=== PATIENT | female | born 1950 | race Caucasian/White ===

== ENCOUNTER 2017-07-23 20:39 | Observation (INO) ==
--- NOTE | 2017-07-23 20:44 | Emergency Department Note ---
Disposition Clinical Impression: Hypotension Qualifiers: Hypotension type: unspecified hypotension type Qualified Code(s): I95.9 - Hypotension, unspecified Hypothyroidism Qualifiers: Hypothyroidism type: unspecified Qualified Code(s): E03.9 - Hypothyroidism, unspecified Disposition: Admitted As Inpatient Condition: Good General Adult HPI - General Stated complaint: hypotention Time Seen by Provider: 07/23/17 20:43 Source: patient Mode of arrival: ambulatory Limitations: no limitations Nursing Notes Reviewed: Yes Vital Signs Reviewed: Yes - History of Present Illness HPI Narrative: 66-year-old female presents emergency Department with concerns of hypotension. Patient states she initially thought her blood pressure was elevated and she took it at home however on repeat examination the blood pressure was at 70 systolic. EMS was contacted and they also obtained a blood pressure in the systolic 70s. Patient states she felt lightheaded and "dizzy". She denied room spinning however she felt nauseated. She denies any focal neurologic deficits. No other fevers or chills or chest pain or shortness of breath or palpitations. Denies taking extra of any of her other medications. Denies suicidal ideation or homicidal ideation. Denies visual or auditory hallucinations. Patient has not syncopized and denies recent trauma. - Related Data Home Medications Medication Instructions Recorded Confirmed Montelukast [Singulair] 10 mg PO HS 03/16/15 07/24/17 Roflumilast [Daliresp] 500 mcg PO QAM 03/16/15 07/24/17 Escitalopram [Lexapro] 20 mg PO DAILY 11/21/16 07/24/17 Mirtazapine [Remeron] 45 mg PO HS 11/21/16 07/24/17 ARIPiprazole [Abilify] 15 mg PO DAILY 07/24/17 07/24/17 Albuterol Sulfate [Proair Hfa] 2 puff IH Q4H PRN 07/24/17 07/24/17 DULoxetine [Cymbalta] 20 mg PO BID 07/24/17 07/24/17 Divalproex (12 HR) [Depakote (12 500 mg PO BID 07/24/17 07/24/17 HR)] Fluticasone/Vilanterol [Breo 1 puff IH BID 07/24/17 07/24/17 Ellipta 100-25 Mcg INH] Pantoprazole Sodium 40 mg PO DAILY 07/24/17 07/24/17 SUMAtriptan Succinate [Imitrex] 100 mg PO DAILY PRN 07/24/17 07/24/17 Tiotropium [place] [Spiriva 1 spray NS DAILY 07/24/17 07/24/17 Respimat] amLODIPine [Norvasc] 2.5 mg PO DAILY 07/24/17 07/24/17 hydrOXYzine pamoate [HydrOXYzine 25 mg PO TID 07/24/17 07/24/17 Pamoate] Previous Rx's Medication Instructions Recorded Levothyroxine [Synthroid] 150 mcg PO DAILY #30 tablet 07/25/17 Nicotine Patch [Nicoderm] 21 mg TD DAILY #30 patch.td24 07/25/17 amLODIPine [Norvasc] 10 mg PO DAILY #30 tablet 07/25/17 Allergies Allergy/AdvReac Type Severity Reaction Status Date / Time Penicillins Allergy Hives Verified 07/24/17 09:00 Review of Systems: As reviewed in the HPI. All other systems reviewed are negative or normal. Past Medical History - Past Medical History Attestation: Yes The following information was validated with the patient. Source: patient Medical history: Reports: asthma, CHF, COPD, CVA, fibromyalgia, GERD, hepatitis , hyperlipidemia, hypertension, osteoporosis, RA, other Surgical history: Reports: pacemaker/AICD, thyroidectomy, other Psychiatric history: Reports: anxiety, depression ASSET SPECIALIST history: Reports: no ASSET SPECIALIST history - Social History Smoking Status: Current every day smoker Smokeless Tobacco Status: No Alcohol use: Reports: none Drug use: Reports: marijuana Physical Exam - General Limitations: no limitations General appearance: alert, in no apparent distress - Head Head exam: atraumatic, normocephalic, normal inspection - Eye Eye exam: Present: normal appearance, PERRL, EOMI - ENT ENT exam: normal exam, normal oropharynx, mucous membranes moist - Neck Neck exam: Present: normal inspection, full ROM, trachea midline - Chest Chest inspection: Present: normal inspection, symmetric chest wall rise - Respiratory Respiratory exam: Present: normal lung sounds bilaterally - Cardiovascular Cardiovascular exam: Present: regular rate, normal rhythm, normal heart sounds - Abdominal Exam Abdominal exam: Present: soft, Non-Tender. Absent: tenderness, distention, guarding, rebound, rigidity - Extremities Exam Extremities exam: Present: normal inspection, full ROM. Absent: tenderness, pedal edema Course Course Narrative: Patient presenting with and infiltrated, and hypotension. Looks well. We will screen for sepsis. We will also add on a TSH. patient to be signed out to be finished by attending due to have to leave for didactics. Vital Signs Temperature 97.9 F 07/23/17 20:46 Pulse Rate 60 07/23/17 20:46 Respiratory Rate 16 07/23/17 20:46 Blood Pressure 84/48 07/23/17 20:46 O2 Sat by Pulse Oximetry 94 07/23/17 20:46 Temperature 99.1 F 07/25/17 11:15 Pulse Rate 70 07/25/17 11:15 Respiratory Rate 16 07/25/17 11:15 Blood Pressure 152/82 07/25/17 16:01 O2 Sat by Pulse Oximetry 91 07/25/17 11:15 Oxygen Delivery Oxygen Delivery Room Air Medical Decision Making - Lab Data Result diagrams: 07/25/17 05:43 07/25/17 05:43 Lab Results 07/23/17 07/23/17 07/23/17 Range/Units 21:17 21:17 21:17 WBC 8.7 (4.3-11.1) K/mcL RBC 4.55 (3.82-4.97) M/mcL Hgb 12.7 (11.5-15.4) g/dL Hct 38.5 (35.3-44.9) % MCV 84.6 (83.0-100.0) fL MCH 27.9 L (28.0-33.3) pg MCHC 33.0 (31.6-35.5) g/dL RDW 13.8 (11.5-14.5) % Plt Count 208 (140-400) K/mcL MPV 10.0 (9.4-12.4) fL Immature Gran % 0.2 (0-4) % Seg Neutrophils % 53.6 % Lymphocytes % 37.4 % Monocytes % 7.1 % Eosinophils % 1.4 % Basophils % 0.3 % Neutrophils # 4.7 (1.6-8.9) K/mcL Lymphocytes # 3.3 (0.6-4.6) K/mcL Monocytes # 0.6 (0.0-1.3) K/mcL Eosinophils # 0.1 (0.0-0.6) K/mcL Basophils # 0.0 (0.0-0.2) K/mcL Sodium 135 L (136-145) mEq/L Potassium 3.6 (3.5-5.1) mEq/L Chloride 102 (98-107) mEq/L Carbon Dioxide 28 (23-29) mEq/L BUN 13 (8-23) mg/dL Creatinine 1.08 (0.60-1.20) mg/dL Est GFR ( Amer) > 60 (> 60) Est GFR (Non-Af Amer) 51 L (> 60) BUN/Creatinine Ratio 12 (6-26) Glucose 125 H (70-105) mg/dL Calculated Osmolality 282 (280-300) Lactic Acid 1.6 (0.5-2.2) mmol/L Calcium 9.1 (8.6-10.3) mg/dL Phosphorus 3.5 (2.7-4.5) mg/dL Magnesium 2.1 (1.6-2.6) mg/dL Total Bilirubin 0.3 (0.3-1.0) mg/dL Direct Bilirubin 0.1 (0.0-0.2) mg/dL Indirect Bilirubin 0.2 (0.0-1.2) mg/dL AST 20 (13-39) Units/L ALT 13 (7-52) Units/L Alkaline Phosphatase 46 (34-104) Units/L Troponin I < 0.03 (< 0.04) ng/mL B-Natriuretic Peptide (Less than 100) pg/mL Serum Total Protein 6.0 L (6.4-8.9) g/dL Albumin 3.8 (3.5-5.7) g/dL Globulin 2.2 L (2.4-3.5) g/dL Albumin/Globulin Ratio 1.7 (1.1-2.2) TSH 26.198 H (0.340-5.600) mcIU/mL Ur Specimen Adequacy Urine Color (Yellow) Urine Clarity (Clear) Urine pH (5.0-8.0) pH Units Ur Specific [place] (1.010-1.025) Urine Protein (Neg-Trace) mg/dL Urine Glucose (UA) (Normal) mg/dL Urine Ketones (Negative) mg/dL Urine Blood (Negative) Urine Nitrite (Negative) Urine Bilirubin (Negative) Urine Urobilinogen (Normal) mg/dL Ur Leukocyte Esterase (Negative) Urine Microscopic RBC (0-3) per hpf Urine Microscopic WBC (0-3) per hpf Ur Squamous Epith Cells (None-Few) per lpf Urine Bacteria (None-Few) per hpf Hyaline Casts (None-Few) per lpf Ur Culture Indicated? (NO) 07/23/17 07/23/17 Range/Units 21:17 21:27 WBC (4.3-11.1) K/mcL RBC (3.82-4.97) M/mcL Hgb (11.5-15.4) g/dL Hct (35.3-44.9) % MCV (83.0-100.0) fL MCH (28.0-33.3) pg MCHC (31.6-35.5) g/dL RDW (11.5-14.5) % Plt Count (140-400) K/mcL MPV (9.4-12.4) fL Immature Gran % (0-4) % Seg Neutrophils % % Lymphocytes % % Monocytes % % Eosinophils % % Basophils % % Neutrophils # (1.6-8.9) K/mcL Lymphocytes # (0.6-4.6) K/mcL Monocytes # (0.0-1.3) K/mcL Eosinophils # (0.0-0.6) K/mcL Basophils # (0.0-0.2) K/mcL Sodium (136-145) mEq/L Potassium (3.5-5.1) mEq/L Chloride (98-107) mEq/L Carbon Dioxide (23-29) mEq/L BUN (8-23) mg/dL Creatinine (0.60-1.20) mg/dL Est GFR ( Amer) (> 60) Est GFR (Non-Af Amer) (> 60) BUN/Creatinine Ratio (6-26) Glucose (70-105) mg/dL Calculated Osmolality (280-300) Lactic Acid (0.5-2.2) mmol/L Calcium (8.6-10.3) mg/dL Phosphorus (2.7-4.5) mg/dL Magnesium (1.6-2.6) mg/dL Total Bilirubin (0.3-1.0) mg/dL Direct Bilirubin (0.0-0.2) mg/dL Indirect Bilirubin (0.0-1.2) mg/dL AST (13-39) Units/L ALT (7-52) Units/L Alkaline Phosphatase (34-104) Units/L Troponin I (< 0.04) ng/mL B-Natriuretic Peptide 23 (Less than 100) pg/mL Serum Total Protein (6.4-8.9) g/dL Albumin (3.5-5.7) g/dL Globulin (2.4-3.5) g/dL Albumin/Globulin Ratio (1.1-2.2) TSH (0.340-5.600) mcIU/mL Ur Specimen Adequacy Urine Color Yellow (Yellow) Urine Clarity Clear (Clear) Urine pH 6.0 (5.0-8.0) pH Units Ur Specific [place] >= 1.030 H (1.010-1.025) Urine Protein 100 H (Neg-Trace) mg/dL Urine Glucose (UA) 100 H (Normal) mg/dL Urine Ketones 15 H (Negative) mg/dL Urine Blood Negative (Negative) Urine Nitrite Negative (Negative) Urine Bilirubin Moderate H (Negative) Urine Urobilinogen Normal (Normal) mg/dL Ur Leukocyte Esterase Negative (Negative) Urine Microscopic RBC 0-3 (0-3) per hpf Urine Microscopic WBC 0-3 (0-3) per hpf Ur Squamous Epith Cells Moderate H (None-Few) per lpf Urine Bacteria Few (None-Few) per hpf Hyaline Casts Many H (None-Few) per lpf Ur Culture Indicated? NO (NO)
[2017-07-23] MEDS ORDERED: 0.9 % Sodium Chloride 1,000 ML IVC ONE ×2 (20:51→21:49)
[2017-07-23 21:33] LABS: Basophils % 0.3 %; Eosinophils # 0.1 K/mcL (0.0-0.6); Eosinophils % 1.4 %; Hematocrit 38.5 % (35.3-44.9); Hemoglobin 12.7 g/dL (11.5-15.4); Immature Granulocytes % 0.2 % (0-4); Lymphocytes # 3.3 K/mcL (0.6-4.6); Lymphocytes % 37.4 %; Mean Corpuscular Hemoglobin 27.9 pg (28.0-33.3); Mean Corpuscular Volume 84.6 fL (83.0-100.0); Monocytes # 0.6 K/mcL (0.0-1.3); Monocytes % 7.1 %; Neutrophils # 4.7 K/mcL (1.6-8.9); Platelet Count 208 K/mcL (140-400); Red Blood Count 4.55 M/mcL (3.82-4.97); Red Cell Distribution Width 13.8 % (11.5-14.5); Segmented Neutrophils % 53.6 %
[2017-07-23 21:34] LABS: Bilirubin,Urine Moderate (Negative); Blood,Urine Negative (Negative); Clarity,Urine Clear (Clear); Color,Urine Yellow (Yellow); Glucose,Urine (UA) 100 mg/dL (Normal); Ketones,Urine 15 mg/dL (Negative); Leukocyte Esterase,Urine Negative (Negative); Nitrite,Urine Negative (Negative); Protein,Urine 100 mg/dL (Neg-Trace); Specific Gravity,Urine >= 1.030 (1.010-1.025); Urobilinogen,Urine Normal (Normal)
[2017-07-23 21:38] LABS: RBC,Urine 0-3 per hpf (0-3); WBC,Urine 0-3 per hpf (0-3)
[2017-07-23 21:39] LABS: Bacteria,Urine Few per hpf (None-Few); Hyaline Casts,Urine Many per lpf (None-Few); Squamous Epithelial Cell,Urine Moderate per lpf (None-Few)
[2017-07-23 21:54] LABS: Troponin I < 0.03 ng/mL (< 0.04)
[2017-07-23 21:55] LABS: Alanine Aminotransferase 13 Units/L (7-52); Albumin 3.8 g/dL (3.5-5.7); Albumin/Globulin Ratio 1.7 (1.1-2.2); Alkaline Phosphatase 46 Units/L (34-104); Aspartate Amino Transferase 20 Units/L (13-39); BUN/Creatinine Ratio 12 (6-26); Bilirubin,Direct 0.1 mg/dL (0.0-0.2); Bilirubin,Indirect 0.2 mg/dL (0.0-1.2); Bilirubin,Total 0.3 mg/dL (0.3-1.0); Blood Urea Nitrogen 13 mg/dL (8-23); Calcium 9.1 mg/dL (8.6-10.3); Carbon Dioxide 28 mEq/L (23-29); Chloride 102 mEq/L (98-107); Globulin 2.2 g/dL (2.4-3.5); Glucose 125 mg/dL (70-105); Magnesium 2.1 mg/dL (1.6-2.6); Osmolality,Calculated 282 (280-300); Phosphorous 3.5 mg/dL (2.7-4.5); Potassium 3.6 mEq/L (3.5-5.1); Sodium 135 mEq/L (136-145); eGFR For African Americans > 60 (> 60); eGFR For Non-African Americans 51 (> 60)
[2017-07-23 22:28] LABS: Thyroid Stimulating Hormone 26.198 mcIU/mL (0.340-5.600)
--- NOTE | 2017-07-23 23:14 | Emergency Department Note ---
Disposition Clinical Impression: Hypotension Qualifiers: Hypotension type: unspecified hypotension type Qualified Code(s): I95.9 - Hypotension, unspecified Hypothyroidism Qualifiers: Hypothyroidism type: unspecified Qualified Code(s): E03.9 - Hypothyroidism, unspecified Disposition: Admitted As Inpatient Condition: Fair Referrals: Wilmer Eldridge MD [Primary Care Provider] - Time of Disposition: 23:16 General Adult HPI - General Chief complaint: ED General Medical Stated complaint: hypotention Time Seen by Provider: 07/23/17 20:43 Source: patient, EMS Mode of arrival: ambulatory Limitations: no limitations Nursing Notes Reviewed: Yes Vital Signs Reviewed: Yes - History of Present Illness HPI Narrative: I, Tyrell Badillo, examined this patient and my medical decision-making was reviewed with the [employer]/PA/Advanced Practice Nurse/Resident Physician. I agree with the documented findings, disposition and treatment plan as described except to the extent set forth below. 66-year-old female presents emergency Department with concerns of hypotension. Patient states she initially thought her blood pressure was elevated and she took it at home however on repeat examination the blood pressure was at 70 systolic. EMS was contacted and they also obtained a blood pressure in the systolic 70s. Patient states she felt lightheaded and "dizzy". She denied room spinning however she felt nauseated. She denies any focal neurologic deficits. No other fevers or chills or chest pain or shortness of breath or palpitations. Denies taking extra of any of her other medications. Denies suicidal ideation or homicidal ideation. Denies visual or auditory hallucinations. Patient has not syncopized and denies recent trauma. Pain Scale: 2 - Related Data Home Medications Medication Instructions Recorded Confirmed Lamotrigine 150 mg PO HS 03/16/15 11/21/16 Levothyroxine [Synthroid] 100 mcg PO 0630 03/16/15 11/21/16 Metoprolol [Lopressor] 25 mg PO ONCE 03/16/15 11/21/16 Montelukast [Singulair] 10 mg PO HS 03/16/15 11/21/16 Roflumilast [Daliresp] 500 mcg PO QAM 03/16/15 11/21/16 Escitalopram [Lexapro] 20 mg PO DAILY 11/21/16 11/21/16 Mirtazapine [Remeron] 45 mg PO HS 11/21/16 11/21/16 Quetiapine Fumarate [SEROquel] 100 mg PO HS 11/21/16 11/21/16 hydrOXYzine HCl [Hydroxyzine HCl] 25 mg PO TID PRN 11/21/16 11/21/16 Previous Rx's Medication Instructions Recorded Meloxicam 7.5 mg PO DAILY #10 tablet 11/21/16 Allergies Allergy/AdvReac Type Severity Reaction Status Date / Time Penicillins Allergy Hives Verified 11/20/16 20:36 All systems ED: reviewed and negative except as stated. Review of Systems: As Per HPI Past Medical History - Past Medical History Attestation: Yes The following information was validated with the patient. Source: patient Medical history: Reports: asthma, CHF, COPD, CVA, fibromyalgia, GERD, hepatitis , hyperlipidemia, hypertension, osteoporosis, RA, other Surgical history: Reports: pacemaker/AICD, thyroidectomy, other Psychiatric history: Reports: anxiety, depression PRODUCTION LINE MECHANIC history: Reports: no PRODUCTION LINE MECHANIC history - Social History Smoking Status: Current every day smoker Smokeless Tobacco Status: No Alcohol use: Reports: none Drug use: Reports: marijuana Physical Exam General: Alert and in no acute distress Skin: Warm, dry, intact Head: Normocephalic and atraumatic Neck: Supple, trachea midline and no tenderness Cardiovascular: RRR, no murmur, normal perfusion Respiratory: CTAB, no wheezing, cough, or respiratory distress Musculoskeletal: Normal strength, no tenderness, swelling or deformity GI: Soft, nontender, nondistended. Bowel sounds present Neuro: A&O to person, place, time and situation. No focal deficits noted on exam Psychiatric: cooperative and appropriate mood and affect. - General Limitations: no limitations General appearance: alert Course Vital Signs Temperature 97.9 F 07/23/17 20:46 Pulse Rate 60 07/23/17 20:46 Respiratory Rate 16 07/23/17 20:46 Blood Pressure 84/48 07/23/17 20:46 O2 Sat by Pulse Oximetry 94 07/23/17 20:46 Temperature 97.9 F 07/23/17 20:46 Pulse Rate 60 07/23/17 23:10 Respiratory Rate 14 07/23/17 23:10 Blood Pressure 110/61 07/23/17 23:10 O2 Sat by Pulse Oximetry 95 07/23/17 23:10 Oxygen Delivery Oxygen Delivery Room Air Medical Decision Making - MDM Narrative Medical decision making narrative: Patient blood pressure was hypotensive on initial evaluation however this did improve after IV fluids. Patient denied chest pain or near syncopal symptoms throughout this event. Patient has no focal neurologic deficits on exam. Patient denies recent nausea, vomiting, diarrhea or inability to tolerate by mouth intake. Patient TSH returned significantly elevated however patient states she has not missed any of her medications. Patient was given 200 g of Synthroid for initial repletion. She will be admitted to the hospital for further evaluation of her hypotension. - Medical Records Medical records reviewed: Yes I reviewed the patient's medical records. - Lab Data Lab results reviewed: Yes I reviewed the patient's lab results. Result diagrams: 07/23/17 21:17 07/23/17 21:17 Lab Results 07/23/17 07/23/17 07/23/17 Range/Units 21:17 21:17 21:17 WBC 8.7 (4.3-11.1) K/mcL RBC 4.55 (3.82-4.97) M/mcL Hgb 12.7 (11.5-15.4) g/dL Hct 38.5 (35.3-44.9) % MCV 84.6 (83.0-100.0) fL MCH 27.9 L (28.0-33.3) pg MCHC 33.0 (31.6-35.5) g/dL RDW 13.8 (11.5-14.5) % Plt Count 208 (140-400) K/mcL MPV 10.0 (9.4-12.4) fL Immature Gran % 0.2 (0-4) % Seg Neutrophils % 53.6 % Lymphocytes % 37.4 % Monocytes % 7.1 % Eosinophils % 1.4 % Basophils % 0.3 % Neutrophils # 4.7 (1.6-8.9) K/mcL Lymphocytes # 3.3 (0.6-4.6) K/mcL Monocytes # 0.6 (0.0-1.3) K/mcL Eosinophils # 0.1 (0.0-0.6) K/mcL Basophils # 0.0 (0.0-0.2) K/mcL Sodium 135 L (136-145) mEq/L Potassium 3.6 (3.5-5.1) mEq/L Chloride 102 (98-107) mEq/L Carbon Dioxide 28 (23-29) mEq/L BUN 13 (8-23) mg/dL Creatinine 1.08 (0.60-1.20) mg/dL Est GFR ( Amer) > 60 (> 60) Est GFR (Non-Af Amer) 51 L (> 60) BUN/Creatinine Ratio 12 (6-26) Glucose 125 H (70-105) mg/dL Calculated Osmolality 282 (280-300) Lactic Acid 1.6 (0.5-2.2) mmol/L Calcium 9.1 (8.6-10.3) mg/dL Phosphorus 3.5 (2.7-4.5) mg/dL Magnesium 2.1 (1.6-2.6) mg/dL Total Bilirubin 0.3 (0.3-1.0) mg/dL Direct Bilirubin 0.1 (0.0-0.2) mg/dL Indirect Bilirubin 0.2 (0.0-1.2) mg/dL AST 20 (13-39) Units/L ALT 13 (7-52) Units/L Alkaline Phosphatase 46 (34-104) Units/L Troponin I < 0.03 (< 0.04) ng/mL B-Natriuretic Peptide (Less than 100) pg/mL Serum Total Protein 6.0 L (6.4-8.9) g/dL Albumin 3.8 (3.5-5.7) g/dL Globulin 2.2 L (2.4-3.5) g/dL Albumin/Globulin Ratio 1.7 (1.1-2.2) TSH 26.198 H (0.340-5.600) mcIU/mL Ur Specimen Adequacy Urine Color (Yellow) Urine Clarity (Clear) Urine pH (5.0-8.0) pH Units Ur Specific [place] (1.010-1.025) Urine Protein (Neg-Trace) mg/dL Urine Glucose (UA) (Normal) mg/dL Urine Ketones (Negative) mg/dL Urine Blood (Negative) Urine Nitrite (Negative) Urine Bilirubin (Negative) Urine Urobilinogen (Normal) mg/dL Ur Leukocyte Esterase (Negative) Urine Microscopic RBC (0-3) per hpf Urine Microscopic WBC (0-3) per hpf Ur Squamous Epith Cells (None-Few) per lpf Urine Bacteria (None-Few) per hpf Hyaline Casts (None-Few) per lpf Ur Culture Indicated? (NO) 07/23/17 07/23/17 Range/Units 21:17 21:27 WBC (4.3-11.1) K/mcL RBC (3.82-4.97) M/mcL Hgb (11.5-15.4) g/dL Hct (35.3-44.9) % MCV (83.0-100.0) fL MCH (28.0-33.3) pg MCHC (31.6-35.5) g/dL RDW (11.5-14.5) % Plt Count (140-400) K/mcL MPV (9.4-12.4) fL Immature Gran % (0-4) % Seg Neutrophils % % Lymphocytes % % Monocytes % % Eosinophils % % Basophils % % Neutrophils # (1.6-8.9) K/mcL Lymphocytes # (0.6-4.6) K/mcL Monocytes # (0.0-1.3) K/mcL Eosinophils # (0.0-0.6) K/mcL Basophils # (0.0-0.2) K/mcL Sodium (136-145) mEq/L Potassium (3.5-5.1) mEq/L Chloride (98-107) mEq/L Carbon Dioxide (23-29) mEq/L BUN (8-23) mg/dL Creatinine (0.60-1.20) mg/dL Est GFR ( Amer) (> 60) Est GFR (Non-Af Amer) (> 60) BUN/Creatinine Ratio (6-26) Glucose (70-105) mg/dL Calculated Osmolality (280-300) Lactic Acid (0.5-2.2) mmol/L Calcium (8.6-10.3) mg/dL Phosphorus (2.7-4.5) mg/dL Magnesium (1.6-2.6) mg/dL Total Bilirubin (0.3-1.0) mg/dL Direct Bilirubin (0.0-0.2) mg/dL Indirect Bilirubin (0.0-1.2) mg/dL AST (13-39) Units/L ALT (7-52) Units/L Alkaline Phosphatase (34-104) Units/L Troponin I (< 0.04) ng/mL B-Natriuretic Peptide 23 (Less than 100) pg/mL Serum Total Protein (6.4-8.9) g/dL Albumin (3.5-5.7) g/dL Globulin (2.4-3.5) g/dL Albumin/Globulin Ratio (1.1-2.2) TSH (0.340-5.600) mcIU/mL Ur Specimen Adequacy Urine Color Yellow (Yellow) Urine Clarity Clear (Clear) Urine pH 6.0 (5.0-8.0) pH Units Ur Specific [place] >= 1.030 H (1.010-1.025) Urine Protein 100 H (Neg-Trace) mg/dL Urine Glucose (UA) 100 H (Normal) mg/dL Urine Ketones 15 H (Negative) mg/dL Urine Blood Negative (Negative) Urine Nitrite Negative (Negative) Urine Bilirubin Moderate H (Negative) Urine Urobilinogen Normal (Normal) mg/dL Ur Leukocyte Esterase Negative (Negative) Urine Microscopic RBC 0-3 (0-3) per hpf Urine Microscopic WBC 0-3 (0-3) per hpf Ur Squamous Epith Cells Moderate H (None-Few) per lpf Urine Bacteria Few (None-Few) per hpf Hyaline Casts Many H (None-Few) per lpf Ur Culture Indicated? NO (NO) - Radiology Data Radiology results reviewed: Yes I reviewed the patient's radiology results. - EKG Data EKG #1 EKG attestation: Yes I reviewed and interpreted this EKG. EKG results narrative: ECG - interpreted by ED physician. Rate 60 atrial paced, no STEMI
[2017-07-23] MEDS ORDERED: Levothyroxine Sodium 200 MCG VIAL IVP ONE (23:21)
--- NOTE | 2017-07-23 23:56 | Internal Med History&Physical ---
Date of Encounter: 07/24/17 Time of Encounter: 23:51 Internal Medicine - H&P: HPI Chief complaint: Low blood pressure Admitted From: Emergency Dept Plans for Post Hospital Care: Home History of present illness: Ms. Alvarado is a 66 year old female with history of htn, hypothyroidism, anxiety/ depression, pacemaker for which it was placed "because my heart stopped working ", tobacco abuse, fibromyalgia, GERD, who presents to the ED with feeling dizzy and nauseated earlier this evening. Please note that the patient is not the best hisotrian. She barely wanted to wake up and speak to me. She had a similar episode last night. Took her BP and found that her systolic was in the 70s. She called EMS who also found a reading in the 70s systolically. She was brought to the ED where her BP was in the 80s systolically. She was given IVF with her BP responding. Her heart rate was paced at 60. Her work up showed mostly unremarkable findings but TSH came back elevated at 26. Was given IV synthroid 200 mcg in the ED. She denies missing doses of her meds but she is not even aware what meds she takes. Denies fever, chills, nausea, vomiting, abdominal pain, diarrhea, constipation, urinary symptoms, or neurological symptoms other than dizziness. Past Med Surg Social Fam HX - Past Medical History Medical history: asthma, CHF, COPD, CVA, fibromyalgia, GERD, hepatitis, hyperlipidemia, hypertension, osteoporosis, RA, other Psychiatric history: anxiety, depression - Past Surgical History Surgical History: pacemaker/AICD, thyroidectomy, other - Social History Smoking Status: Current every day smoker Smokeless Tobacco Status: No Alcohol use: none Drug use: marijuana Internal Medicine - H&P: Meds Lamotrigine 150 mg PO HS 03/16/15 [History] Levothyroxine [Synthroid] 100 mcg PO 0630 03/16/15 [History] Metoprolol [Lopressor] 25 mg PO ONCE 03/16/15 [History] Montelukast [Singulair] 10 mg PO HS 03/16/15 [History] Roflumilast [Daliresp] 500 mcg PO QAM 03/16/15 [History] Escitalopram [Lexapro] 20 mg PO DAILY 11/21/16 [History] Meloxicam 7.5 mg PO DAILY #10 tablet 11/21/16 [Rx] Mirtazapine [Remeron] 45 mg PO HS 11/21/16 [History] Quetiapine Fumarate [SEROquel] 100 mg PO HS 11/21/16 [History] hydrOXYzine HCl [Hydroxyzine HCl] 25 mg PO TID PRN 11/21/16 [History] 3 Allergy/AdvReac Type Severity Reaction Status Date / Time Penicillins Allergy Hives Verified 11/20/16 20:36 All Systems PM: A 10-system review of systems was performed and is negative for pertinent findings except as documented above in the HPI. Review of systems: All systems reviewed are negative except for as mentioned above - Constitutional Vitals: Temp Pulse Resp BP Pulse Ox 97.9 F 60 14 110/61 95 07/23/17 20:46 07/23/17 23:10 07/23/17 23:10 07/23/17 23:10 07/23/17 23:10 Exam: GEN: NAD HEENT: AT, NC, No cyanosis, oral mucosa is moist, No JVD Lymphatics: No lymphadenoapthy Eyes: Extrocular muscles intact, anicteric CVS:RRR. S1, S2, No m/r/g RESP: CTAB ABD: Soft, NT, ND, +BS EXT: No edema, No rashes, 2+ DP NEURO: Nonfocal, CN II-XII intact, No focal motor or sensory deficits Psych: Cooperative, Not anxious or depressed Internal Med - H&P Results - Labs CBC & Chem 7: 07/23/17 21:17 07/23/17 21:17 Labs: Short CBC 07/23/17 Range/Units 21:17 WBC 8.7 (4.3-11.1) K/mcL Hgb 12.7 (11.5-15.4) g/dL Hct 38.5 (35.3-44.9) % Plt Count 208 (140-400) K/mcL Neutrophils # 4.7 (1.6-8.9) K/mcL BMP 07/23/17 21:17 Sodium 135 L Potassium 3.6 Chloride 102 Carbon Dioxide 28 BUN 13 Creatinine 1.08 Glucose 125 H Calcium 9.1 Cardiac Enzymes 07/23/17 Range/Units 21:17 Troponin I < 0.03 (< 0.04) ng/mL Liver Function 07/23/17 Range/Units 21:17 Total Bilirubin 0.3 (0.3-1.0) mg/dL Direct Bilirubin 0.1 (0.0-0.2) mg/dL AST 20 (13-39) Units/L ALT 13 (7-52) Units/L Alkaline Phosphatase 46 (34-104) Units/L Albumin 3.8 (3.5-5.7) g/dL Urine 07/23/17 Range/Units 21:27 Urine Color Yellow (Yellow) Urine Clarity Clear (Clear) Urine pH 6.0 (5.0-8.0) pH Units Ur Specific [place] >= 1.030 H (1.010-1.025) Urine Protein 100 H (Neg-Trace) mg/dL Urine Glucose (UA) 100 H (Normal) mg/dL - Impressions ITS Impressions Chest X-Ray 07/23/17 20:52 IMPRESSION: No acute cardiopulmonary abnormality. D/ / Jayy Hamilton / Jayy Hamilton Interpreting Provider: Jayy Hamilton - Assessment and plan (1) Hypotension Current Visit: Yes Status: Acute Assessment and plan: Associated dizziness. Will check orhtostatics. check echo. Hold antihypertensives. BP is stable now after IVF. Qualifiers: Hypotension type: unspecified hypotension type Qualified Code(s): I95.9 - Hypotension, unspecified (2) Hypothyroidism Current Visit: Yes Status: Acute Assessment and plan: Unsure about compliance but states that she takes 100 mcg daily of synthroid. Will increase home dose by 50 mcg. Needs repeat TSH in 4-6 weeks. check rest of thyroid panel. Qualifiers: Hypothyroidism type: unspecified Qualified Code(s): E03.9 - Hypothyroidism , unspecified (3) Depression Current Visit: Yes Status: Acute Assessment and plan: Resume home anti-depressants Qualifiers: Depression Type: unspecified Qualified Code(s): F32.9 - Major depressive disorder, single episode, unspecified (4) COPD (chronic obstructive pulmonary disease) Current Visit: No Status: Acute Assessment and plan: Not in exacerbation. Resume home inhalers Qualifiers: COPD type: unspecified COPD Qualified Code(s): J44.9 - Chronic obstructive pulmonary disease, unspecified (5) DVT prophylaxis Current Visit: Yes Status: Acute Assessment and plan: heparin SQ - Time Spent With Patient Total time spent is greater than 50% in coordination of care (as documented) at patient's floor/unit and/or counseling patient:
[2017-07-24 01:44] LABS: BUN/Creatinine Ratio 12 (6-26); Blood Urea Nitrogen 11 mg/dL (8-23); Calcium 8.9 mg/dL (8.6-10.3); Carbon Dioxide 28 mEq/L (23-29); Chloride 107 mEq/L (98-107); Glucose 94 mg/dL (70-105); Magnesium 2.1 mg/dL (1.6-2.6); Osmolality,Calculated 289 (280-300); Sodium 140 mEq/L (136-145); eGFR For African Americans > 60 (> 60); eGFR For Non-African Americans > 60 (> 60)
[2017-07-24 01:59] LABS: Triiodothyronine (T3) Free 2.68 pg/mL (2.50-3.90)
[2017-07-24 02:03] LABS: Triiodothyronine (T3) Total 0.87 ng/mL (0.87-1.78)
[2017-07-24] MEDS ORDERED: Gabapentin 100 MG CAPSULE PO PRN (02:43)
[2017-07-24] MEDS: *HR* Heparin 5,000 UNIT/ML VIAL SQ SCH ×3 (05:22→21:26)
[2017-07-24] MEDS: Nicotine 21 MG PATCH.TD24 TD SCH ×2 (08:20→11:14)
[2017-07-24] MEDS: (Roflumilast [Daliresp] 500 MCG) PO SCH (08:20)
--- NOTE | 2017-07-24 15:33 | Internal Med Progress Note ---
Date of Encounter: 07/24/17 Time of Encounter: 15:23 - Assessment and plan (1) Hypotension Current Visit: Yes Status: Acute Assessment and plan: with SBPs in 70s/80s at home. BP improved with IV fluids. No tachycardia, afebrile, no elevated to WBC; no evidence of infection. With evidence of orthostatic hypotension. Holding home BP medication. Active compression stockings. Monitor BP and resume home BP medications if BP allows Qualifiers: Hypotension type: unspecified hypotension type Qualified Code(s): I95.9 - Hypotension, unspecified (2) Loose stools Current Visit: Yes Status: Acute Assessment and plan: per patient report on 07/24/17 exam. Patient reports history of C. difficile with ATB use approximately 3 months ago. GI panel pending (3) COPD (chronic obstructive pulmonary disease) Current Visit: No Status: Acute Assessment and plan: Not in exacerbation. Resume home inhalers Qualifiers: COPD type: unspecified COPD Qualified Code(s): J44.9 - Chronic obstructive pulmonary disease, unspecified (4) Hypothyroidism Current Visit: Yes Status: Acute Assessment and plan: Unsure about compliance but states that she takes 100 mcg daily of synthroid. Will increase home dose by 50 mcg. Needs repeat TSH in 4-6 weeks. Qualifiers: Hypothyroidism type: unspecified Qualified Code(s): E03.9 - Hypothyroidism , unspecified (5) Depression Current Visit: Yes Status: Acute Assessment and plan: Resume home anti-depressants Qualifiers: Depression Type: unspecified Qualified Code(s): F32.9 - Major depressive disorder, single episode, unspecified (6) DVT prophylaxis Current Visit: Yes Status: Acute Assessment and plan: heparin - Time Spent With Patient Total time spent is greater than 50% in coordination of care (as documented) at patient's floor/unit and/or counseling patient: - Subjective Interval history: Seen and examined at bedside. Patient is new to me, information obtained from chart review and patient report. Overall says she feels better, still lightheaded and dizzy at times, worse with position change. She also reports multiple loose stools today different from her baseline. - Constitutional Vitals: Temp Pulse Resp BP Pulse Ox 97.4 F L 60 16 132/79 93 07/24/17 10:40 07/24/17 10:40 07/24/17 10:40 07/24/17 10:40 07/24/17 10:40 General appearance: Present: A&O X 3, no acute distress - Head Head exam: Present: atraumatic, normocephalic - Eye Eye exam: Present: PERRL, conjuntiva pink, sclera anicteric Pupils: Present: PERRL - Neck Neck exam general surgery: Present: supple, trachea midline. Absent: lymphadenopathy - Respiratory Respiratory exam: Present: CTAB. Absent: accessory muscle use, rales, rhonchi, wheezes - Cardiovascular Cardiovascular exam: Present: RRR, +S1, +S2. Absent: diastolic murmur, gallop, rubs, systolic murmur - GI/Abdominal GI/Abdominal exam: Present: normal bowel sounds, soft, no peritoneal signs. Absent: distended, tenderness - Extremities Exam Extremities exam: Present: warm, radial pulses palpable and symmetrical. Absent : calf tenderness, cyanotic, pedal edema - Neurological Exam Neurological exam: Present: CN II-XII intact, oriented X3, no focal deficits. Absent: pronater drift, facial droop, speech deficit - Skin Skin exam: Present: dry, intact Internal Medicine: Result - Labs CBC & Chem 7: 07/23/17 21:17 07/24/17 00:28 Labs: BMP 07/24/17 00:28 Sodium 140 Potassium 4.0 Chloride 107 Carbon Dioxide 28 BUN 11 Creatinine 0.92 Glucose 94 Calcium 8.9 Consult Discharge Plan - Plan Referrals: Wilmer Eldridge MD [Primary Care Provider] -
--- NOTE | 2017-07-24 16:18 | Electrocardiograph Report ---
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
[2017-07-24] MEDS ORDERED: Mirtazapine 15 MG TABLET PO SCH (21:00)
[2017-07-25] MEDS: *HR* Heparin 5,000 UNIT/ML VIAL SQ SCH ×2 (05:17→13:56)
[2017-07-25 06:12] LABS: Hematocrit 45.3 % (35.3-44.9); Mean Corpuscular HGB Conc 32.7 g/dL (31.6-35.5); Mean Corpuscular Hemoglobin 27.7 pg (28.0-33.3); Mean Corpuscular Volume 84.7 fL (83.0-100.0); Mean Platelet Volume 9.8 fL (9.4-12.4); Platelet Count 233 K/mcL (140-400); Red Blood Count 5.35 M/mcL (3.82-4.97); Red Cell Distribution Width 13.8 % (11.5-14.5)
[2017-07-25 06:15] LABS: Hemoglobin 14.8 g/dL (11.5-15.4)
[2017-07-25 06:34] LABS: BUN/Creatinine Ratio 13 (6-26); Blood Urea Nitrogen 10 mg/dL (8-23); Calcium 9.4 mg/dL (8.6-10.3); Carbon Dioxide 31 mEq/L (23-29); Chloride 105 mEq/L (98-107); Glucose 86 mg/dL (70-105); Osmolality,Calculated 288 (280-300); Sodium 140 mEq/L (136-145); eGFR For African Americans > 60 (> 60); eGFR For Non-African Americans > 60 (> 60)
[2017-07-25] MEDS: Nicotine 21 MG PATCH.TD24 TD SCH (09:47)
[2017-07-25] MEDS ORDERED: amLODIPine 5 MG TABLET PO SCH (10:30)
[2017-07-25] MEDS: (Roflumilast [Daliresp] 500 MCG) PO SCH (12:03)
[2017-07-25 16:01] VITALS: BP 152/82
--- NOTE | 2017-07-25 16:08 | Discharge Summary ---
- NOTES TO OUTPATIENT PROVIDER Notes to Outpatient Provider: Recommend follow-up with PCP within 3-5 days for BP recheck and repeat TSH/thyroid studies in 6-8 weeks Orders not resulted at time of discharge: Pending orders 07/26/17 04:00 BMP [Basic Metabolic Panel] AM 0400 Complete Blood Count w/o Diff [HEME] AM 04007/27/17 04:00 BMP [Basic Metabolic Panel] AM 0400 Complete Blood Count w/o Diff [HEME] AM 04007/28/17 04:00 BMP [Basic Metabolic Panel] AM 0400 Complete Blood Count w/o Diff [HEME] AM 0400 07/29/17 04:00 BMP [Basic Metabolic Panel] AM 0400 Complete Blood Count w/o Diff [HEME] AM 0400 Date of Encounter: 07/25/17 Time of Encounter: 16:06 - Discharge Diagnosis (1) Hypotension Priority: Primary Status: Acute Assessment and Plan: has known HTN and on 3 different antihypertensive agents; presented with SBPs in 70s/80s at home. BP improved with IV fluids. No tachycardia, afebrile, no elevated to WBC; no evidence of infection. Does appear to have some component of orthostatic hypotension. Initially I will home BP medications held. BP became normotensive and then uncontrolled with SBP's in 170s. Resumed home amlodipine at increased dose with improvement in BP. Continue holding home BB, clonidine. Patient advised to monitor BP at home and follow-up with PCP within one week for BP recheck. Qualifiers: Hypotension type: unspecified hypotension type Qualified Code(s): I95.9 - Hypotension, unspecified (2) Loose stools Priority: Primary Status: Acute Assessment and Plan: per patient report on 07/24/17 exam. Patient reports history of C. difficile with ATB use approximately 3 months ago. GI panel ordered however stool was formed therefore lab was unable to process. Advised to follow-up with PCP if the still recurs. (3) COPD (chronic obstructive pulmonary disease) Priority: Secondary Status: Chronic Assessment and Plan: per hx. no evidence of exacerbation. Continue home inhalers. Smoking cessation advised Qualifiers: COPD type: unspecified COPD Qualified Code(s): J44.9 - Chronic obstructive pulmonary disease, unspecified (4) Hypothyroidism Priority: Primary Status: Acute Assessment and Plan: TSH 26, free T4 1 0.8, T4 12 0.3, free T3 2 0.6 and total T3 0.8. Question medication compliance. Home levothyroxine increased to 150 g. Recommend repeat TSH in 6-8 weeks with PCP Qualifiers: Hypothyroidism type: unspecified Qualified Code(s): E03.9 - Hypothyroidism , unspecified (5) Depression Priority: Secondary Status: Chronic Assessment and Plan: per hx. Sx's stable. cont home medication regimen Qualifiers: Depression Type: unspecified Qualified Code(s): F32.9 - Major depressive disorder, single episode, unspecified Hospital course: Please see assessment and plan for hospital course Discharge discussed with: patient (Seen and examined at bedside. Patient says she feels significantly improved and would like to go home today. Advised her that one of her BP medications has been restarted and she will need to monitor BP at home, keep a record of blood pressures and follow-up with PCP within 3-5 days. No further loose stool recurrence. Denies chest pain, no shortness of breath, no lightheadedness or dizziness. Advised to return to ER if symptoms recur) - Time Spent with Patient Total time spent providing and/or coordinating discharge services: - Discharge Medications Prescriptions: amLODIPine [Norvasc] 10 mg PO DAILY #30 tablet Levothyroxine [Synthroid] 150 mcg PO DAILY #30 tablet Nicotine Patch [Nicoderm] 21 mg TD DAILY #30 patch.td24 Home Medications: Montelukast [Singulair] 10 mg PO HS 03/16/15 [History] Roflumilast [Daliresp] 500 mcg PO QAM 03/16/15 [History] Escitalopram [Lexapro] 20 mg PO DAILY 11/21/16 [History] Mirtazapine [Remeron] 45 mg PO HS 11/21/16 [History] ARIPiprazole [Abilify] 15 mg PO DAILY 07/24/17 [History] Albuterol Sulfate [Proair Hfa] 2 puff IH Q4H PRN 07/24/17 [History] DULoxetine [Cymbalta] 20 mg PO BID 07/24/17 [History] Divalproex (12 HR) [Depakote (12 HR)] 500 mg PO BID 07/24/17 [History] Fluticasone/Vilanterol [Breo Ellipta 100-25 Mcg INH] 1 puff IH BID 07/24/17 [ History] Pantoprazole Sodium 40 mg PO DAILY 07/24/17 [History] SUMAtriptan Succinate [Imitrex] 100 mg PO DAILY PRN 07/24/17 [History] Tiotropium [place] [Spiriva Respimat] 1 spray NS DAILY 07/24/17 [History] amLODIPine [Norvasc] 2.5 mg PO DAILY 07/24/17 [History] hydrOXYzine pamoate [HydrOXYzine Pamoate] 25 mg PO TID 07/24/17 [History] Levothyroxine [Synthroid] 150 mcg PO DAILY #30 tablet 07/25/17 [Rx] Nicotine Patch [Nicoderm] 21 mg TD DAILY #30 patch.td24 07/25/17 [Rx] amLODIPine [Norvasc] 10 mg PO DAILY #30 tablet 07/25/17 [Rx] Allergies/Adverse Reactions: 3 Allergy/AdvReac Type Severity Reaction Status Date / Time Penicillins Allergy Hives Verified 07/24/17 09:00 Date of admission: 07/24/17 00:00 Primary care physician: Wilmer Eldridge MD Discharging clinician: Nina Heredia Anticipated date of discharge: 07/25/17 - Constitutional Vitals: Temp Pulse Resp BP Pulse Ox 99.1 F 70 16 152/82 91 07/25/17 11:15 07/25/17 11:15 07/25/17 11:15 07/25/17 16:01 07/25/17 11:15 General appearance: Present: A&O X 3, no acute distress - Head Head exam: Present: atraumatic, normocephalic - Eye Eye exam: Present: PERRL, conjuntiva pink, sclera anicteric Pupils: Present: PERRL - Neck Neck exam general surgery: Present: supple, trachea midline. Absent: lymphadenopathy - Respiratory Respiratory exam: Present: CTAB. Absent: accessory muscle use, rales, rhonchi, wheezes - Cardiovascular Cardiovascular exam: Present: RRR, +S1, +S2. Absent: diastolic murmur, gallop, rubs, systolic murmur - GI/Abdominal GI/Abdominal exam: Present: normal bowel sounds, soft, no peritoneal signs. Absent: distended, tenderness - Extremities Exam Extremities exam: Present: warm, radial pulses palpable and symmetrical. Absent : calf tenderness, cyanotic, pedal edema - Neurological Exam Neurological exam: Present: CN II-XII intact, oriented X3, no focal deficits. Absent: pronater drift, facial droop, speech deficit - Skin Skin exam: Present: dry, intact - Patient Status Disposition: Home, Self-Care Condition: Good Functional capacity at discharge: independent ambulation Overall status at discharge: patient is back to baseline - Discharge Instructions Instructions: Hypertension (DC), Hypotension (DC), Amlodipine (By mouth), Hypothyroidism (DC) Follow Up With: Wilmer Eldridge MD [Primary Care Provider] - - Diet and Activity Activity: increase activity as tolerated Diet: advance to your usual diet
== END 2017-07-25 17:20 | disposition home or self-care (01) ==
LOC: 3BNU 20:39 → EMEROO 20:39 → 3BNU 07-24 00:15
PROVIDERS: ADMIT Internal Medicine; ATTEND Internal Medicine

== ENCOUNTER 2018-05-16 13:53 | Inpatient (IN) ==
--- NOTE | 2018-05-16 14:02 | Emergency Department Note ---
Disposition Clinical Impression: Facial droop, Tongue deviation, Decreased sensation, Tremor Disposition: Admitted As Inpatient Condition: Fair Referrals: Wilmer Eldridge MD [Primary Care Provider] - Time of Disposition: 15:54 Neuro HPI - General Chief Complaint: ED Neuro Symptoms/Deficit Stated Complaint: weakness Time Seen by Provider: 05/16/18 14:01 Source: patient, EMS Mode of arrival: EMS Limitations: no limitations Nursing Notes Reviewed: Yes Vital Signs Reviewed: Yes - History of Present Illness HPI Narrative: Patient is a 67-year-old female with past medical history of hypertension, hyperlipidemia, CHF, COPD, smoking history. She presented today due to concern for bilateral lower extremity tremors, right-sided nasolabial droop, right-sided tongue deviation. Patient states that she woke up yesterday morning out of sleep and had right-sided drooling and right-sided nasolabial drooping. She also noticed that her tongue deviates to the right. She then later began having tremors of her bilateral lower extremities. Denies any history of strokes. Is not on any blood thinners. Denies any other chest pain, shortness breath, nausea, vomiting, fevers, diarrhea, abdominal pain, neck or back pain. She reportedly walked to the EMS station without difficulty which she told EMS her symptoms and then was brought here for further evaluation. - Related Data Home Medications: Home Medications Medication Instructions Recorded Confirmed Montelukast [Singulair] 10 mg PO HS 03/16/15 07/24/17 Roflumilast [Daliresp] 500 mcg PO QAM 03/16/15 07/24/17 Escitalopram [Lexapro] 20 mg PO DAILY 11/21/16 07/24/17 Mirtazapine [Remeron] 45 mg PO HS 11/21/16 07/24/17 ARIPiprazole [Abilify] 15 mg PO DAILY 07/24/17 07/24/17 Albuterol Sulfate [Proair Hfa] 2 puff IH Q4H PRN 07/24/17 07/24/17 DULoxetine [Cymbalta] 20 mg PO BID 07/24/17 07/24/17 Divalproex (12 HR) [Depakote (12 500 mg PO BID 07/24/17 07/24/17 HR)] Fluticasone/Vilanterol [Breo 1 puff IH BID 07/24/17 07/24/17 Ellipta 100-25 Mcg INH] Pantoprazole Sodium 40 mg PO DAILY 07/24/17 07/24/17 SUMAtriptan Succinate [Imitrex] 100 mg PO DAILY PRN 07/24/17 07/24/17 Tiotropium [place] [Spiriva 1 spray NS DAILY 07/24/17 07/24/17 Respimat] amLODIPine [Norvasc] 2.5 mg PO DAILY 07/24/17 07/24/17 hydrOXYzine pamoate [HydrOXYzine 25 mg PO TID 07/24/17 07/24/17 Pamoate] Previous Rx's Medication Instructions Recorded Levothyroxine [Synthroid] 150 mcg PO DAILY #30 tablet 07/25/17 Nicotine Patch [Nicoderm] 21 mg TD DAILY #30 patch.td24 07/25/17 amLODIPine [Norvasc] 10 mg PO DAILY #30 tablet 07/25/17 Allergies/Adverse Reactions: Allergies Allergy/AdvReac Type Severity Reaction Status Date / Time Penicillins Allergy Hives Verified 07/24/17 09:00 All systems ED: reviewed and negative except as stated. Constitutional: Denies: fever Cardiovascular: Denies: chest pain Respiratory: Denies: dyspnea Gastrointestinal: Denies: abdominal pain, nausea, vomiting, diarrhea Genitourinary: Denies: urgency, dysuria Musculoskeletal: Denies: back pain Integumentary: Denies: rash Neurological: Reports: numbness, other (facial droop). Denies: headache, weakness, paresthesias Past Medical History - Past Medical History Attestation: Yes The following information was validated with the patient. Source: patient Medical history: Reports: asthma, CHF, COPD, CVA, fibromyalgia, GERD, hepatitis, hyperlipidemia, hypertension, osteoporosis, RA, other Surgical history: Reports: pacemaker/AICD, thyroidectomy, other Psychiatric history: Reports: anxiety, depression TRANSMISSION INSPECTOR history: Reports: no TRANSMISSION INSPECTOR history - Social History Smoking Status: Current every day smoker Smokeless Tobacco Status: No Alcohol use: Reports: none Drug use: Reports: marijuana Physical Exam - General Limitations: no limitations General appearance: alert, in no apparent distress - Head Head exam: atraumatic, normocephalic, normal inspection - Eye Eye exam: Present: normal appearance, PERRL, EOMI - ENT ENT exam: normal oropharynx, mucous membranes moist, other (right sided labial droop - mild; mild decrease in sensation of right chin) - Neck Neck exam: Present: normal inspection, full ROM, trachea midline - Chest Chest inspection: Present: normal inspection, symmetric chest wall rise - Respiratory Respiratory exam: Present: normal lung sounds bilaterally - Cardiovascular Cardiovascular exam: Present: regular rate, normal rhythm, normal heart sounds - Abdominal Exam Abdominal exam: Present: soft, Non-Tender. Absent: tenderness, distention, guarding, rebound, rigidity - Extremities Exam Extremities exam: Present: full ROM, other (mild resting tremor bilateral LE). Absent: tenderness, pedal edema - Neurological Exam Neurological exam: Present: alert, oriented X3 - Expanded Neurological Exam Patient oriented to: Present: person, place, time Speech: Present: fluid speech Cranial nerves: EOM function (II, III, IV, ): Normal, facial sensation (V): Abnormal Right (decreased right chin), facial palsy (VII): Abnormal Right (mild right nasolabial droop), spinal accessory function (XI): Normal, tongue deviation (XII): Abnormal Right (tongue deviates to right) Cerebellar function: finger to nose: Normal, heel to holley: Normal Motor strength - LUE: 5/5 Motor strength - RUE: 5/5 Motor strength - LLE: 5/5 Motor strength - RLE: 5/5 Sensory exam upper extremity: light touch: Normal Sensory exam lower extremity: light touch: Normal Coma Scale Eye Opening: Spontaneous Coma Scale Motor Response: Obeys Commands Coma Scale Verbal Response: Oriented Coma Scale Total: 15 - Psychiatric Psychiatric exam: Present: normal affect, normal mood - Skin Skin exam: Present: warm, dry, intact, normal color Course Course Narrative: Patient's symptoms have been ongoing for more than 24 hours. No stroke alert called at this time. Patient had mild right nasal labial drooping, deviation of her tongue to the right and decreased sensation of her right chin. Otherwise, the rest of the physical exam was benign. We will perform CT the head noncontrast, basic labs, EKG and troponin level. 15:57 EKG shows NSR with no acute ST changes. CXR negative. Head CT negative for any acute abnormality. Labs noncerning, trop negative. Will give aspirin and then admit for further care - recommend CTA or MR head and neck and neuro consult, carotid dopplers. Head CT 05/16/18 14:06 IMPRESSION: No acute intracranial abnormality. D/ / Elian Ramirez MD / Elian Ramirez MD Interpreting Provider: Elian Ramirez MD Chest X-Ray 05/16/18 14:18 IMPRESSION: Mild left basilar atelectasis. D/ / Shanda Suarez MD / Shanda Suarez MD Interpreting Provider: Shanda Suarez MD Vital Signs Temperature 98.7 F 05/16/18 13:59 Pulse Rate 63 05/16/18 13:59 Respiratory Rate 15 05/16/18 13:59 Blood Pressure 128/73 05/16/18 13:59 O2 Sat by Pulse Oximetry 97 05/16/18 13:59 Temperature 98.7 F 05/16/18 14:06 Pulse Rate 71 05/16/18 14:06 Respiratory Rate 15 05/16/18 14:06 Blood Pressure 128/73 05/16/18 14:06 O2 Sat by Pulse Oximetry 95 05/16/18 14:06 Oxygen Delivery Oxygen Delivery Room Air Neuro Symptoms/Deficit - MDM Narrative Medical decision making narrative: Patient's symptoms have been ongoing for more than 24 hours. No stroke alert called at this time. Patient had mild right nasal labial drooping, deviation of her tongue to the right and decreased sensation of her right chin. Otherwise, the rest of the physical exam was benign. We will perform CT the head noncontrast, basic labs, EKG and troponin level. 15:57 EKG shows NSR with no acute ST changes. CXR negative. Head CT negative for any acute abnormality. Labs noncerning, trop negative. Will give aspirin and then admit for further care - recommend CTA or MR head and neck and neuro consult, carotid dopplers. - Medical Records Medical records reviewed: Yes I reviewed the patient's medical records. - Lab Data Lab results reviewed: Yes I reviewed the patient's lab results. Result diagrams: 05/16/18 14:14 05/16/18 14:14 Lab Results 05/16/18 05/16/18 05/16/18 Range/Units 14:14 14:14 14:14 WBC 9.0 (4.3-11.1) K/mcL RBC 5.54 H (3.82-4.97) M/mcL Hgb 15.1 (11.5-15.4) g/dL Hct 45.3 H (35.3-44.9) % MCV 81.8 L (83.0-100.0) fL MCH 27.3 L (28.0-33.3) pg MCHC 33.3 (31.6-35.5) g/dL RDW 14.3 (11.5-14.5) % Plt Count 293 (140-400) K/mcL MPV 9.6 (9.4-12.4) fL PT 12.1 (9.4-12.1) Seconds INR 1.1 APTT 36.5 H (26.0-36.0) Seconds Sodium 140 (136-145) mEq/L Potassium 3.7 (3.5-5.1) mEq/L Chloride 102 (98-107) mEq/L Carbon Dioxide 28 (23-29) mEq/L BUN 19 (8-23) mg/dL Creatinine 0.88 (0.60-1.20) mg/dL Est GFR ( Amer) > 60 (> 60) Est GFR (Non-Af Amer) > 60 (> 60) BUN/Creatinine Ratio 22 (6-26) Glucose 103 (70-105) mg/dL Calculated Osmolality 293 (280-300) Calcium 9.8 (8.6-10.3) mg/dL Troponin I < 0.03 (< 0.04) ng/mL - Radiology Data Radiology results reviewed: Yes I reviewed the patient's radiology results. Head CT 05/16/18 14:06 IMPRESSION: No acute intracranial abnormality. D/ / Elian Ramirez MD / Elian Ramirez MD Interpreting Provider: Elian Ramirez MD Chest X-Ray 05/16/18 14:18 IMPRESSION: Mild left basilar atelectasis. D/ / Shanda Suarez MD / Shanda Suarez MD Interpreting Provider: Shanda Suarez MD - EKG Data EKG attestation: Yes I reviewed and interpreted this EKG. EKG results narrative: 05/16/2018 at 14:03. Sinus rhythm. Rate 69. [place] 164. QRS 97. QTC 443. Normal axis. No acute ST elevation or depression. NIH Stroke Scale - Level of Consciousness LOC: Alert - LOC Questions LOC Questions: Answers both correctly - LOC Commands LOC Commands: Performs both correctly - Best Gaze Best Gaze: Normal - Visual Visual: No visual loss - Facial Palsy Facial Palsy: Minor asymmetry on smiling, flattened nasolabial fold - Motor Arms Motor Arm-Left: No drift for 10 seconds Motor Arm-Right: No drift for 10 seconds - Motor Legs Motor Leg-Left: No drift for 5 seconds Motor Leg-Right: No drift for 5 seconds - Limb Ataxia Limb Ataxia: Absent of affected limb too weak to perform exam - Sensory Sensory: Mild to moderate loss, "not as sharp" - Best Language Best Language: No aphasia - Dysarthria Dysarthria: Normal - Extinction and Inattention Extinction and Inattention: Normal - NIHSS Total Score NIHSS Total Score: 2 TPA Checklist - Eligibilty for IV tPA 1. LKW equal to or less than 4.5 hours be before treatment: No - LKW: 3-4.5 hrs Add. Warnings/Precautions Patient/family understanding: The patient/family members have been counseled and understood the risk, benefit, and alternatives of treatment. S.B.A.R. - S.B.A.R. Situation: Demographics, MOA Background: Presenting Complaint, Relevant PMH, Meds, & Allergies Assessment: Vital Signs, Course and respsone to treatment, Exam Concerns, Patient/Family Expectation, Pertinant Lab Results Recommendation: Barrier(s) to disposition, Recommendation based on pending studies, treatments, or consults S.B.A.R. Report Given to: Dr. Sanchez
[2018-05-16 14:31] LABS: Hematocrit 45.3 % (35.3-44.9); Hemoglobin 15.1 g/dL (11.5-15.4); Mean Corpuscular HGB Conc 33.3 g/dL (31.6-35.5); Mean Corpuscular Hemoglobin 27.3 pg (28.0-33.3); Mean Corpuscular Volume 81.8 fL (83.0-100.0); Mean Platelet Volume 9.6 fL (9.4-12.4); Platelet Count 293 K/mcL (140-400); Red Blood Count 5.54 M/mcL (3.82-4.97); Red Cell Distribution Width 14.3 % (11.5-14.5)
[2018-05-16 14:38] LABS: INR 1.1; Prothrombin Time 12.1 Seconds (9.4-12.1)
[2018-05-16 14:41] LABS: Activated Partial Thrombo Time 36.5 Seconds (26.0-36.0)
[2018-05-16 14:53] LABS: Troponin I < 0.03 ng/mL (< 0.04)
[2018-05-16 15:03] LABS: BUN/Creatinine Ratio 22 (6-26); Blood Urea Nitrogen 19 mg/dL (8-23); Calcium 9.8 mg/dL (8.6-10.3); Carbon Dioxide 28 mEq/L (23-29); Chloride 102 mEq/L (98-107); Glucose 103 mg/dL (70-105); Osmolality,Calculated 293 (280-300); Potassium 3.7 mEq/L (3.5-5.1); Sodium 140 mEq/L (136-145); eGFR For Non-African Americans > 60 (> 60)
--- NOTE | 2018-05-16 15:34 | Emergency Department Note ---
Disposition Clinical Impression: Facial droop, Tongue deviation, Decreased sensation, Tremor Disposition: Admitted As Inpatient Condition: Fair Time of Disposition: 16:18 General Adult HPI - General Chief complaint: ED Neuro Symptoms/Deficit Stated complaint: weakness Time Seen by Provider: 05/16/18 14:01 Source: patient, EMS Mode of arrival: EMS Limitations: no limitations - History of Present Illness Pain Scale: 0 - Related Data Home Medications Medication Instructions Recorded Confirmed Montelukast [Singulair] 10 mg PO HS 03/16/15 07/24/17 Roflumilast [Daliresp] 500 mcg PO QAM 03/16/15 07/24/17 Escitalopram [Lexapro] 20 mg PO DAILY 11/21/16 07/24/17 Mirtazapine [Remeron] 45 mg PO HS 11/21/16 07/24/17 ARIPiprazole [Abilify] 15 mg PO DAILY 07/24/17 07/24/17 Albuterol Sulfate [Proair Hfa] 2 puff IH Q4H PRN 07/24/17 07/24/17 DULoxetine [Cymbalta] 20 mg PO BID 07/24/17 07/24/17 Divalproex (12 HR) [Depakote (12 500 mg PO BID 07/24/17 07/24/17 HR)] Fluticasone/Vilanterol [Breo 1 puff IH BID 07/24/17 07/24/17 Ellipta 100-25 Mcg INH] Pantoprazole Sodium 40 mg PO DAILY 07/24/17 07/24/17 SUMAtriptan Succinate [Imitrex] 100 mg PO DAILY PRN 07/24/17 07/24/17 Tiotropium [place] [Spiriva 1 spray NS DAILY 07/24/17 07/24/17 Respimat] amLODIPine [Norvasc] 2.5 mg PO DAILY 07/24/17 07/24/17 hydrOXYzine pamoate [HydrOXYzine 25 mg PO TID 07/24/17 07/24/17 Pamoate] Previous Rx's Medication Instructions Recorded Levothyroxine [Synthroid] 150 mcg PO DAILY #30 tablet 07/25/17 Nicotine Patch [Nicoderm] 21 mg TD DAILY #30 patch.td24 07/25/17 amLODIPine [Norvasc] 10 mg PO DAILY #30 tablet 07/25/17 Allergies Allergy/AdvReac Type Severity Reaction Status Date / Time Penicillins Allergy Hives Verified 07/24/17 09:00 Constitutional: Denies: fever Cardiovascular: Denies: chest pain Respiratory: Denies: dyspnea Gastrointestinal: Denies: abdominal pain, nausea, vomiting, diarrhea Genitourinary: Denies: urgency, dysuria Musculoskeletal: Denies: back pain Integumentary: Denies: rash Neurological: Reports: numbness, other (facial droop). Denies: headache, weakness, paresthesias Past Medical History - Past Medical History Medical history: Reports: asthma, CHF, COPD, CVA, fibromyalgia, GERD, hepatitis, hyperlipidemia, hypertension, osteoporosis, RA, other Surgical history: Reports: pacemaker/AICD, thyroidectomy, other Psychiatric history: Reports: anxiety, depression ADMINISTRATION VICE PRESIDENT history: Reports: no ADMINISTRATION VICE PRESIDENT history - Social History Smoking Status: Current every day smoker Smokeless Tobacco Status: No Alcohol use: Reports: none Drug use: Reports: marijuana Physical Exam - General Limitations: no limitations General appearance: alert, in no apparent distress Course Vital Signs Temperature 98.7 F 05/16/18 13:59 Pulse Rate 63 05/16/18 13:59 Respiratory Rate 15 05/16/18 13:59 Blood Pressure 128/73 05/16/18 13:59 O2 Sat by Pulse Oximetry 97 05/16/18 13:59 Temperature 98.7 F 05/16/18 14:06 Pulse Rate 64 05/16/18 16:04 Respiratory Rate 16 05/16/18 16:04 Blood Pressure 126/88 05/16/18 16:04 O2 Sat by Pulse Oximetry 95 05/16/18 16:04 Oxygen Delivery Oxygen Delivery Room Air Medical Decision Making - Lab Data Result diagrams: 05/16/18 14:14 05/16/18 14:14 Lab Results 05/16/18 05/16/18 05/16/18 Range/Units 14:14 14:14 14:14 WBC 9.0 (4.3-11.1) K/mcL RBC 5.54 H (3.82-4.97) M/mcL Hgb 15.1 (11.5-15.4) g/dL Hct 45.3 H (35.3-44.9) % MCV 81.8 L (83.0-100.0) fL MCH 27.3 L (28.0-33.3) pg MCHC 33.3 (31.6-35.5) g/dL RDW 14.3 (11.5-14.5) % Plt Count 293 (140-400) K/mcL MPV 9.6 (9.4-12.4) fL PT 12.1 (9.4-12.1) Seconds INR 1.1 APTT 36.5 H (26.0-36.0) Seconds Sodium 140 (136-145) mEq/L Potassium 3.7 (3.5-5.1) mEq/L Chloride 102 (98-107) mEq/L Carbon Dioxide 28 (23-29) mEq/L BUN 19 (8-23) mg/dL Creatinine 0.88 (0.60-1.20) mg/dL Est GFR ( Amer) > 60 (> 60) Est GFR (Non-Af Amer) > 60 (> 60) BUN/Creatinine Ratio 22 (6-26) Glucose 103 (70-105) mg/dL Calculated Osmolality 293 (280-300) Calcium 9.8 (8.6-10.3) mg/dL Troponin I < 0.03 (< 0.04) ng/mL Attestation Statement - Attestation Attestation: I examined this patient and my medical decision-making was reviewed with the Resident Physician. I agree with the documented findings, disposition and treatment plan as described except to the extent set forth below. Patient presents to the ED with a chief complaint of drooling from the right side of her mouth. Patient woke up this way yesterday. States today her legs are shaking as well. Yesterday she had some left arm numbness without resolved. On exam she is awake and alert. Noted to have a left-sided droop of her mouth. She has a NIH of 2. Symmetric veterinarian poultry strength. Plan. CT head is unremarkable. Patient will be admitted for further stroke workup. She would not be a TPA candidate secondary to her symptom onset being over [address] 05/16/18 14:06 IMPRESSION: No acute intracranial abnormality. D/ / Elian Ramirez MD / Elian Ramirez MD Interpreting Provider: Elian Ramirez MD Chest X-Ray 05/16/18 14:18 IMPRESSION: Mild left basilar atelectasis. D/ / Shanda Suarez MD / Shanda Suarez MD Interpreting Provider: Shanda Suarez MD
[2018-05-16] MEDS ORDERED: Aspirin 325 MG TABLET PO ONE (15:49)
--- NOTE | 2018-05-16 16:00 | Internal Med History&Physical ---
Date of Encounter: 05/16/18 Time of Encounter: 16:00 Internal Medicine - H&P: HPI Chief complaint: Drooling and R facial droop Admitted From: Home Plans for Post Hospital Care: Home History of present illness: Ms. Alvarado is a 67 year old female with past medical history of thyroidectomy, smoker since 19 years old and continues to smoke, COPD, HTN, pacemaker (last interrogated 3 years ago) who presented with R facial droop and drooling onset 2 days ago. Boyfriend/male automation engineering technician of 2 5years at bedside during my encounter. Pt's BF states he had noticed she had been having tremors on her left side of her body for the past couple of days. Per pt tremors have progressed past 2 days about the same time she initially n oted facial droop. She denies prior history of CVA that she is aware of. Today she and her BF decided to walk to EMS building, about 15 to 20 ft aware from their home and they where brought to the ED for further work up. BF states her SBP had also been running in 190's past couple of days. Pt states she has been complaint with her BP medications and has not missed a dose. She denies difficulty swallowing but states her throat feels sore. She states her tongue keeps deviating to the R. She also reports having cough but states it is minimally productive. She denies having fever or chills. FmHx: Mother hx of Alzhiemer's dementia In ED WBC 9.0, hgb 15.1, hct 45.3, plt 293. PT 12.1, INr 1.1. Na 140, K 3.7, BUN 19, Cr 0.88. Troponin <0.03. 12 lead EKG ordered and pending Chest x ray XR/XR chest 1V portable IMPRESSION: Mild left basilar atelectasis. Non-contrast CT head CT/CT head/brain wo con IMPRESSION: No acute intracranial abnormality. CODE STATUS: FULL Past Med Surg Social Fam HX - Past Medical History Medical history: asthma, CHF, COPD, CVA, fibromyalgia, GERD, hepatitis, hyperlipidemia, hypertension, osteoporosis, RA, other Additional medical history: lumbago. sleep apnea. Hep C. DDD. SSS Psychiatric history: anxiety, depression - Past Surgical History Surgical History: pacemaker/AICD, thyroidectomy, other Additional surgical history: PT RELUCTANT TO ANSWER - Social History Smoking Status: Current every day smoker Smokeless Tobacco Status: No Alcohol use: none Drug use: marijuana - Family History Father Hx Family Cardiac Disorders: Yes (Pacemaker) Mother Living Status: Hx Family Neuromuscular Disorders: Yes (Alzheimer's) Internal Medicine - H&P: Meds Montelukast [Singulair] 10 mg PO HS 03/16/15 [History] Roflumilast [Daliresp] 500 mcg PO QAM 03/16/15 [History] Escitalopram [Lexapro] 20 mg PO DAILY 11/21/16 [History] Mirtazapine [Remeron] 45 mg PO HS 11/21/16 [History] ARIPiprazole [Abilify] 15 mg PO DAILY 07/24/17 [History] Albuterol Sulfate [Proair Hfa] 2 puff IH Q4H PRN 07/24/17 [History] DULoxetine [Cymbalta] 20 mg PO BID 07/24/17 [History] Divalproex (12 HR) [Depakote (12 HR)] 500 mg PO BID 07/24/17 [History] Fluticasone/Vilanterol [Breo Ellipta 100-25 Mcg INH] 1 puff IH BID 07/24/17 [History] Pantoprazole Sodium 40 mg PO DAILY 07/24/17 [History] SUMAtriptan Succinate [Imitrex] 100 mg PO DAILY PRN 07/24/17 [History] Tiotropium [place] [Spiriva Respimat] 1 spray NS DAILY 07/24/17 [History] amLODIPine [Norvasc] 2.5 mg PO DAILY 07/24/17 [History] hydrOXYzine pamoate [HydrOXYzine Pamoate] 25 mg PO TID 07/24/17 [History] Levothyroxine [Synthroid] 150 mcg PO DAILY #30 tablet 07/25/17 [Rx] Nicotine Patch [Nicoderm] 21 mg TD DAILY #30 patch.td24 07/25/17 [Rx] amLODIPine [Norvasc] 10 mg PO DAILY #30 tablet 07/25/17 [Rx] Allergy/AdvReac Type Severity Reaction Status Date / Time Penicillins Allergy Hives Verified 07/24/17 09:00 All Systems PM: A 10-system review of systems was performed and is negative for pertinent findings except as documented above in the HPI. - Constitutional Vitals: Temp Pulse Resp BP Pulse Ox 98.7 F 71 15 128/73 95 05/16/18 14:06 05/16/18 14:06 05/16/18 14:06 05/16/18 14:06 05/16/18 14:06 General appearance: Present: A&O X 3, no acute distress Exam: . - Head Head exam: Present: atraumatic, normocephalic - Eye Eye exam: Present: PERRL, conjuntiva pink, sclera anicteric Pupils: Present: PERRL - Neck Neck exam general surgery: Present: supple, trachea midline. Absent: lymphadenopathy - Respiratory Respiratory exam: Present: CTAB. Absent: accessory muscle use, rales, rhonchi, wheezes - Cardiovascular Cardiovascular exam: Present: RRR, +S1, +S2. Absent: diastolic murmur, gallop, rubs, systolic murmur - GI/Abdominal GI/Abdominal exam: Present: normal bowel sounds, soft, no peritoneal signs. Absent: distended, tenderness - Extremities Exam Extremities exam: Present: warm, radial pulses palpable and symmetrical. Absent: calf tenderness, cyanotic, pedal edema - Neurological Exam Neurological exam: Present: CN II-XII intact, oriented X3, no focal deficits. Absent: pronater drift, facial droop, speech deficit Additional comments: R facial droop and drooling Decreased sensation to R face No pronator drift - Skin Skin exam: Present: dry, intact Internal Med - H&P Results - Labs CBC & Chem 7: 05/16/18 14:14 05/16/18 14:14 Labs: Short CBC 05/16/18 Range/Units 14:14 WBC 9.0 (4.3-11.1) K/mcL Hgb 15.1 (11.5-15.4) g/dL Hct 45.3 H (35.3-44.9) % Plt Count 293 (140-400) K/mcL BMP 05/16/18 14:14 Sodium 140 Potassium 3.7 Chloride 102 Carbon Dioxide 28 BUN 19 Creatinine 0.88 Glucose 103 Calcium 9.8 Cardiac Enzymes 05/16/18 Range/Units 14:14 Troponin I < 0.03 (< 0.04) ng/mL - Impressions ITS Impressions Head CT 05/16/18 14:06 IMPRESSION: No acute intracranial abnormality. D/ / Elian Ramirez MD / Elian Ramirez MD Interpreting Provider: Elian Ramirez MD Chest X-Ray 05/16/18 14:18 IMPRESSION: Mild left basilar atelectasis. D/ / Shanda Suarez MD / Shanda Suarez MD Interpreting Provider: Shanda Suarez MD - Assessment and plan (1) Acute CVA (cerebrovascular accident) Current Visit: Yes Status: Acute Assessment and plan: Clinically symptoms compatible with CVA, however, pt will need further work up. Since symptoms started about 2 days ago, pt is currently out of the window for thrombolysis. Will consult neurology to see. Will place on ASA and statin for now. Will check lipid panel in am Consulting PT/OT/ SPT to see. Will consult SW. (2) Pacemaker Current Visit: Yes Status: Acute Assessment and plan: Will order interrogation. Will need records of PM from PCP office to determine if it is MRI compatible. (3) Essential hypertension Current Visit: Yes Status: Acute Assessment and plan: norvasc (4) COPD (chronic obstructive pulmonary disease) Current Visit: No Status: Chronic Assessment and plan: Resuming home nebs. Not in exacerbation Qualifiers: COPD type: unspecified COPD Qualified Code(s): J44.9 - Chronic obstructive pulmonary disease, unspecified (5) Hypothyroidism Current Visit: No Status: Acute Assessment and plan: Resume home dose synthroid Qualifiers: Hypothyroidism type: unspecified Qualified Code(s): E03.9 - Hypothyroidism, unspecified (6) Current smoker Current Visit: Yes Status: Acute Assessment and plan: cassation strongly advised - Time Spent With Patient Total time spent is greater than 50% in coordination of care (as documented) at patient's floor/unit and/or counseling patient: 25 - 35 minutes
[2018-05-16] MEDS ORDERED: Gadolinium Contrast Agent (WT Based) IV PRN (16:45)
[2018-05-16] MEDS ORDERED: Naloxone 0.4 MG/ML INJ IVP PRN (16:45)
[2018-05-16] MEDS ORDERED: Isovue-370 500 ML BOTTLE IVP ONE (17:04)
[2018-05-16] MEDS: Divalproex (12 HR) 500 MG TABLET PO SCH (20:51)
[2018-05-17 06:27] LABS: Troponin I < 0.03 ng/mL (< 0.04)
[2018-05-17 06:40] LABS: Alanine Aminotransferase 16 Units/L (7-52); Albumin 3.5 g/dL (3.5-5.7); Albumin/Globulin Ratio 1.5 (1.1-2.2); Alkaline Phosphatase 55 Units/L (34-104); Aspartate Amino Transferase 23 Units/L (13-39); BUN/Creatinine Ratio 24 (6-26); Bilirubin,Total 0.3 mg/dL (0.3-1.0); Blood Urea Nitrogen 20 mg/dL (8-23); Calcium 9.2 mg/dL (8.6-10.3); Carbon Dioxide 29 mEq/L (23-29); Chloride 101 mEq/L (98-107); Chol/HDL Ratio 3.6 (0-4.9); Cholesterol 149 mg/dL (< 200); Globulin 2.4 g/dL (2.4-3.5); Glucose 100 mg/dL (70-105); HDL Cholesterol 41 mg/dL (40-59); LDL Cholesterol,Calculated 71 mg/dL (0-99); Osmolality,Calculated 297 (280-300); Potassium 3.6 mEq/L (3.5-5.1); Prothrombin Time 11.6 Seconds (9.4-12.1); Sodium 142 mEq/L (136-145); Total Protein 5.9 g/dL (6.4-8.9); Triglycerides 183 mg/dL (< 150); eGFR For Non-African Americans > 60 (> 60)
[2018-05-17 07:55] LABS: Estimated Average Glucose 117 mg/dl; Hemoglobin A1C 5.7 %
[2018-05-17] MEDS: Divalproex (12 HR) 500 MG TABLET PO SCH (08:45)
[2018-05-17] MEDS ORDERED: amLODIPine 5 MG TABLET PO SCH (09:00)
[2018-05-17] MEDS ORDERED: ARIPiprazole 10 MG TABLET PO SCH (09:00)
[2018-05-17] MEDS ORDERED: Aspirin Enteric Coated 81 MG Tablet PO SCH (09:00)
[2018-05-17] MEDS ORDERED: Nicotine 14 MG PATCH.TD24 TD SCH (09:00)
--- NOTE | 2018-05-17 10:18 | Discharge Summary ---
<Tamar Baig - Last Filed: 05/17/18 14:42> - NOTES TO OUTPATIENT PROVIDER Notes to Outpatient Provider: Placed patient on ASA and Atorvastatin. Orders not resulted at time of discharge: Pending orders 05/16/18 17:15 Respiratory Infection Panel [MOLMIC] Routine 05/17/18 04:00 Urinalysis reflex Microscopic [URIN] AM 0400 Date of Encounter: 05/17/18 Time of Encounter: 10:00 - Discharge Diagnosis (1) COPD (chronic obstructive pulmonary disease) Priority: Secondary Status: Chronic Qualifiers: COPD type: unspecified COPD Qualified Code(s): J44.9 - Chronic obstructive pulmonary disease, unspecified (2) Hypothyroidism Priority: Secondary Status: Acute Qualifiers: Hypothyroidism type: unspecified Qualified Code(s): E03.9 - Hypothyroidism, unspecified (3) Pacemaker Priority: Secondary Status: Acute (4) Essential hypertension Priority: Secondary Status: Acute (5) Current smoker Priority: Secondary Status: Acute (6) TIA (transient ischemic attack) Priority: Primary Status: Acute Hospital course: Ms. Alvarado is a 67 year old female past medical history of thyroidectomy, smoker since 19 years old and continues to smoke, COPD, HTN, pacemaker (last interrogated 3 years ago) who presented with R facial droop and drooling onset 2 days ago. In the ED CTA of head and neck performed due to inability to due MRI as pacemacker is incompatible which did not show any occlusions. Patient was started on aspirin 81mg daily and atorvastatin 40 mg daily. Neurology was consulted and recommended ASA and statin therapy. Patient was diagnosed with TIA, but could possibly be conversion disorder as patient does have a lot of anxiety. Symptoms resolved by the time patient was ready for dischraged. She was discharged home in stable condition and was instructed to follow-up with her primary care physician within the next week. - Time Spent with Patient Total time spent providing and/or coordinating discharge services: - Discharge Medications Prescriptions: New RX: Nicotine Patch [Nicoderm] 14 mg TD DAILY #30 patch.td24 RX: Atorvastatin [Lipitor] 40 mg PO HS #30 tablet RX: Aspirin Enteric Coated [Aspirin EC] 81 mg PO DAILY #30 tablet.dr Continue RX: SUMAtriptan Succinate [Imitrex] 100 mg PO DAILY PRN PRN Reason: Migraine Headache RX: hydrOXYzine pamoate [HydrOXYzine Pamoate] 25 mg PO TID PRN PRN Reason: Anxiety RX: Fluticasone/Vilanterol [Breo Ellipta 100-25 Mcg INH] 2 puff IH BID RX: amLODIPine [Norvasc] 2.5 mg PO DAILY RX: Escitalopram [Lexapro] 20 mg PO DAILY No Action ARIPiprazole [Abilify] 10 mg PO DAILY Amitriptyline [Elavil] 25 mg PO HS Tiotropium [place] [Spiriva Respimat] 2 puff PO BID Albuterol Sulfate [Ventolin Hfa] 2 puff IH Q6H PRN PRN Reason: Shortness Of Breath Levothyroxine [Synthroid] 100 mcg PO QAM ARIPiprazole [Abilify] 5 mg PO DAILY Haloperidol [Haldol] 5 mg PO BID RX: Divalproex Sodium 500 mg PO QAM RX: Divalproex Sodium 1,000 mg PO HS RX: Mirtazapine [Remeron] 15 mg PO HS Meclizine HCl [Verticalm] 25 mg PO TID PRN PRN Reason: Dizziness Propranolol [Inderal] 20 mg PO BID BuPROPion XL (24 HR) [Wellbutrin XL] 150 mg PO DAILY RX: cloNIDine HCl [CloNIDine HCl] 0.1 mg PO BID Ondansetron ODT [Zofran ODT] 4 mg PO Q6H PRN PRN Reason: Nausea Guaifenesin [Mucinex] 600 mg PO Q12H Home Medications: RX: Escitalopram [Lexapro] 20 mg PO DAILY 11/21/16 [History] RX: Fluticasone/Vilanterol [Breo Ellipta 100-25 Mcg INH] 2 puff IH BID 07/24/17 [History] RX: SUMAtriptan Succinate [Imitrex] 100 mg PO DAILY PRN 07/24/17 [History] RX: amLODIPine [Norvasc] 2.5 mg PO DAILY 07/24/17 [History] RX: hydrOXYzine pamoate [HydrOXYzine Pamoate] 25 mg PO TID PRN 07/24/17 [History] ARIPiprazole [Abilify] 5 mg PO DAILY 05/17/18 [History] ARIPiprazole [Abilify] 10 mg PO DAILY 05/17/18 [History] Albuterol Sulfate [Ventolin Hfa] 2 puff IH Q6H PRN 05/17/18 [History] Amitriptyline [Elavil] 25 mg PO HS 05/17/18 [History] BuPROPion XL (24 HR) [Wellbutrin XL] 150 mg PO DAILY 05/17/18 [History] Guaifenesin [Mucinex] 600 mg PO Q12H 05/17/18 [History] Haloperidol [Haldol] 5 mg PO BID 05/17/18 [History] Levothyroxine [Synthroid] 100 mcg PO QAM 05/17/18 [History] Meclizine HCl [Verticalm] 25 mg PO TID PRN 05/17/18 [History] Ondansetron ODT [Zofran ODT] 4 mg PO Q6H PRN 05/17/18 [History] Propranolol [Inderal] 20 mg PO BID 05/17/18 [History] RX: Aspirin Enteric Coated [Aspirin EC] 81 mg PO DAILY #30 tablet. 05/17/18 [Rx] RX: Atorvastatin [Lipitor] 40 mg PO HS #30 tablet 05/17/18 [Rx] RX: Divalproex Sodium 1,000 mg PO HS 05/17/18 [History] RX: Divalproex Sodium 500 mg PO QAM 05/17/18 [History] RX: Mirtazapine [Remeron] 15 mg PO HS 05/17/18 [History] RX: Nicotine Patch [Nicoderm] 14 mg TD DAILY #30 patch.td24 05/17/18 [Rx] RX: cloNIDine HCl [CloNIDine HCl] 0.1 mg PO BID 05/17/18 [History] Tiotropium [place] [Spiriva Respimat] 2 puff PO BID 05/17/18 [History] Allergies/Adverse Reactions: Allergy/AdvReac Type Severity Reaction Status Date / Time Penicillins Allergy Hives, Verified 05/17/18 11:38 VOMITING, NAUSEA Date of admission: 05/16/18 17:24 Primary care physician: Wilmer Eldridge MD Consults: 05/16/18 16:45 Consult for Pharmacy Education [CONS] Stat Reason for Consult: cva Call Completed: No Consult to Neurology [CONS] Routine Consulting Provider: Neurology [facility] Reason for Consult: CVA Call Completed: Yes Consult to Occupational Therapy [CONS] Routine Comment: Evaluate, develop and implement POC Reason for Consult: cva Does patient have active BEDREST order?: No Is patient medically & hemodynamically stable?: Yes Patient assessed for mobility or mobilized this visit?: No Consult to Physical Therapy [CONS] Routine Comment: Evaluate, develop and implement POC Reason for Consult: cva Does patient have active BEDREST order?: No Is patient medically & hemodynamically stable?: Yes Patient assessed for mobility or mobilized this visit?: No Consult to Food Service Representative [CONS] Routine Reason for SW Consult: stroke Discharging clinician: Berkley Vicente Anticipated date of discharge: 05/17/18 - Constitutional Vitals: Temp Pulse Resp BP Pulse Ox 97.7 F 61 15 120/76 92 05/17/18 06:39 05/17/18 06:39 05/17/18 06:39 05/17/18 06:39 05/17/18 06:39 General appearance: Present: A&O X 3, no acute distress Exam: Constitutional: Alert, in no acute distress Head: Normocephalic, atraumatic Eyes: Nystagmus with clonus left to right, EOMI Heart: Normal, regular rate and rhythm, no murmurs Lungs: Clear to auscultation, no wheezes, rales, or rhonchi Abdomen: Soft, nondistended, nontender, bowel sounds present and normal, no guarding or rigidity. Extremities: left lower extremity with resting tremor, strength 5/5 in all extremities, No edema, No clubbing, radial pulse +2/4, capillary refill <2sec. Skin: Skin warm and dry, no lesions, no rashes, no jaundice Neurologic: right sided facial drooping, tongue deviates to the right, parasthesia in the CN 5 distribution on the right, strength 5/5 in all extremities Psych: Cooperative with exam, good eye contact, cognitive function intact, speech clear, thought process logical, and goal directed - Patient Status Disposition: Home, Self-Care Condition: Fair Functional capacity at discharge: independent ambulation Overall status at discharge: patient is progressing back to baseline - Discharge Instructions Follow Up With: Wilmer Eldridge MD [Primary Care Provider] - Additional Instructions: Please take medications as prescribed. Please follow-up with primary care physician within one week. Please return to the ED if worsening or new onset of symptoms occurs. - Diet and Activity Activity: as per physical therapy Diet: advance to your usual diet <Berkley Vicente - Last Filed: 05/17/18 15:59> Orders not resulted at time of discharge: Pending orders 05/16/18 17:15 Respiratory Infection Panel [MOLMIC] Routine 05/17/18 04:00 Urinalysis reflex Microscopic [URIN] AM 0400 Date of Encounter: 05/17/18 - Discharge Diagnosis (1) COPD (chronic obstructive pulmonary disease) Status: Chronic Qualifiers: COPD type: unspecified COPD Qualified Code(s): J44.9 - Chronic obstructive pulmonary disease, unspecified (2) Hypothyroidism Status: Acute Qualifiers: Hypothyroidism type: unspecified Qualified Code(s): E03.9 - Hypothyroidism, unspecified (3) Pacemaker Status: Acute (4) Essential hypertension Status: Acute (5) Current smoker Status: Acute (6) TIA (transient ischemic attack) Status: Acute Hospital course: Ms. Alvarado is a 67 year old female - Time Spent with Patient Total time spent providing and/or coordinating discharge services: Date of admission: 05/16/18 17:24 Primary care physician: Wilmer Eldridge MD Consults: 05/16/18 16:45 Consult for Pharmacy Education [CONS] Stat Reason for Consult: cva Call Completed: No Consult to Neurology [CONS] Routine Consulting Provider: [facility]rology [facility] Reason for Consult: CVA Call Completed: Yes Consult to Food Service Representative [CONS] Routine Reason for SW Consult: stroke - Constitutional Vitals: Temp Pulse Resp BP Pulse Ox 97.9 F 69 16 141/77 90 05/17/18 15:38 05/17/18 15:38 05/17/18 15:38 05/17/18 15:38 05/17/18 15:38 - Attending Attestation I examined this patient and my medical decision-making was reviewed with the Resident Physician Dr. Baig. I agree with the documented findings, disposition and treatment plan as described except to the extent set forth below. Ms. Alvarado is a 67 year old female past medical history of chronic smoking, COPD, HTN, pacemaker (last interrogated 3 years ago) who presented with R facial droop and drooling onset 2 days ago. She also c/o resitng tremors. She had Ct of Head, CTA of Head & Neck every thing came back as negative. She denied any more Rt side numbness / tingling, as well as no facial droop. Her symptoms might be due to TIA. Unable to do MRI of head since her pacemaker is not MRI compatible. I did recommend the pt start taking ASA 81mg and counseled to quit smoking. Also placed her on Lipitor 40mg. Gen: A, A, O x3 Neuro: No acute focal neuro deficits noticed.
--- NOTE | 2018-05-17 13:16 | Neurology - Consult Note ---
<Harish Haro J - Last Filed: 05/17/18 17:19> Date of Encounter: 05/17/18 Time of Encounter: 13:07 Assessment and Plan (1) Tremor Status: Acute Patient appears to have intermittent tremor that occurs both at rest and with activity. However, these cease with distraction measures and the patient reports that "I am able to stop them if I think about it". Overall, she appears very anxious and I suspect that these are not true tremors but most likely a manifestation of her anxiety. (2) Acute CVA (cerebrovascular accident) Status: Deleted Neuro consulted with concerns for CVA. CVA Ruled out. CTA negative for acute intracranial abnormality. CTA head and neck with no flow-limiting stenosis or branch occlusion detected in the head or neck. No prior history of CVA. Risk factors include HLD and uncontrolled HTN. She reports she was having episodes of hypertension with SBP in the 190s on the days prior to arrival however, BP has been stable since admission. Patient presented with right-sided facial droop, right tongue deviation, right lower facial numbness and tingling which had been occurring for approximately 3 days prior to arrival. All of these symptoms have subsided. I would not expect a CVA or TIA [address] On exam today the patient does not have any focal neurological deficits and is back to baseline status. Recommend adding aspirin 81 mg daily. neurology will sign off at this time. Okay to discharge from neurology perspective. History of Present Illness Chief complaint: Presents for CVA, tremors HPI: Ms. Alvarado is a 67 year old female with a PMH of asthma, CHF, COPD, fibromyalgia, GERD, hepatitis, HLD, HTN, RA, osteoporosis, anxiety, depression who presents to [facility] with the chief complaint of tremor, right facial droop, hypersalivation, right orofacial paresthesia, and right tongue deviation which began 3-days ago. She denies any history of CVA, and she is not on anticoagulation. She does admit to having some elevated blood pressure with SBP in the 190s on days prior to arrival but reports that most the time her blood pressure is under control with appropriate medication compliance. Otherwise, she denies any visual changes, headaches, dysphagia, dysarthria, unilateral paresthesias, or weakness. Further, she denies any chest pain, shortness of breath, palpitations or fast heart rate, denies any recent illnesses, vomiting, diarrhea, urinary signs or symptoms. Neurology has been consulted to assist in evaluating tremor and concern for CVA. Since admission she has had a CT of the head which shows no acute intracranial abnormality. CTA of the head/neck shows no flow-limiting stenosis or branch occlusion detected within the head or neck. This afternoon she reports that she has continues to have hypersalivation and right tongue deviation but that the facial droop and orofacial paresthesias have resolved. Past Med Surg Social Fam HX - Past Medical History Medical history: asthma, CHF, COPD, CVA, fibromyalgia, GERD, hepatitis, hyperlipidemia, hypertension, osteoporosis, RA, other Additional medical history: lumbago. sleep apnea. Hep C. DDD. SSS Psychiatric history: anxiety, depression - Past Surgical History Surgical History: pacemaker/AICD, thyroidectomy, other Additional surgical history: PT RELUCTANT TO ANSWER - Social History Smoking Status: Current every day smoker Smokeless Tobacco Status: No Alcohol use: none Drug use: marijuana - Family History Father Hx Family Cardiac Disorders: Yes (Pacemaker) Mother Living Status: Hx Family Neuromuscular Disorders: Yes (Alzheimer's) Medications and Allergies Escitalopram [Lexapro] 20 mg PO DAILY 11/21/16 [History] Fluticasone/Vilanterol [Breo Ellipta 100-25 Mcg INH] 2 puff IH BID 07/24/17 [History] SUMAtriptan Succinate [Imitrex] 100 mg PO DAILY PRN 07/24/17 [History] amLODIPine [Norvasc] 2.5 mg PO DAILY 07/24/17 [History] hydrOXYzine pamoate [HydrOXYzine Pamoate] 25 mg PO TID PRN 07/24/17 [History] ARIPiprazole [Abilify] 5 mg PO DAILY 05/17/18 [History] ARIPiprazole [Abilify] 10 mg PO DAILY 05/17/18 [History] Albuterol Sulfate [Ventolin Hfa] 2 puff IH Q6H PRN 05/17/18 [History] Amitriptyline [Elavil] 25 mg PO HS 05/17/18 [History] Aspirin Enteric Coated [Aspirin EC] 81 mg PO DAILY #30 tablet. 05/17/18 [Rx] Atorvastatin [Lipitor] 40 mg PO HS #30 tablet 05/17/18 [Rx] BuPROPion XL (24 HR) [Wellbutrin XL] 150 mg PO DAILY 05/17/18 [History] Divalproex Sodium 1,000 mg PO HS 05/17/18 [History] Divalproex Sodium 500 mg PO QAM 05/17/18 [History] Guaifenesin [Mucinex] 600 mg PO Q12H 05/17/18 [History] Haloperidol [Haldol] 5 mg PO BID 05/17/18 [History] Levothyroxine [Synthroid] 100 mcg PO QAM 05/17/18 [History] Meclizine HCl [Verticalm] 25 mg PO TID PRN 05/17/18 [History] Mirtazapine [Remeron] 15 mg PO HS 05/17/18 [History] Nicotine Patch [Nicoderm] 14 mg TD DAILY #30 patch.td24 05/17/18 [Rx] Ondansetron ODT [Zofran ODT] 4 mg PO Q6H PRN 05/17/18 [History] Propranolol [Inderal] 20 mg PO BID 05/17/18 [History] Tiotropium [place] [Spiriva Respimat] 2 puff PO BID 05/17/18 [History] cloNIDine HCl [CloNIDine HCl] 0.1 mg PO BID 05/17/18 [History] Allergy/AdvReac Type Severity Reaction Status Date / Time Penicillins Allergy Hives, Verified 05/17/18 11:38 VOMITING, NAUSEA All Systems: The remainder of the systems were reviewed and are negative Review of Systems: REVIEW OF SYSTEMS GENERAL: Negative for any nausea, vomiting, fevers, chills, or weight loss NEUROLOGIC: Negative for any visual changes, , dysphagia, dysarthria, hemiparesis, vertigo, ataxia, unilateral weakness or numbness/tingling, Positive--right facial asymmetry, hyper salivation, right orofacial paresthesias, right tongue deviation PSYCH: Positive--anxiety HEENT: Negative for any head trauma, neck trauma, CARDIAC: Negative for any chest pain, dyspnea, peripheral edema Positive--hypertensive episodes with SBP in the 190s GASTROINTESTINAL: Negative for any abdominal pain, nausea, vomiting, diarrhea GENITOURINARY: Negative for any dysuria, hematuria, incontinence. ENDOCRINE: Thyroid trouble, heat/cold intolerance, excessive sweating, thirst, hunger MUSCULOSKELETAL: Negative high-- Joint pain, stiffness, loss of strength Positive-- Decreased activity tolerance Physical Examination - Vital Signs Vital Signs: Initial Vital Signs Temp Pulse Resp BP Pulse Ox 98.7 F 63 15 128/73 97 05/16/18 13:59 05/16/18 13:59 05/16/18 13:59 05/16/18 13:59 05/16/18 13:59 - Exam Exam: Examination: General Examination: *CONSTITUTIONAL: Anxious appearing but cooperative *GENERAL APPEARANCE OF PATIENT appears generally unwell *EYES: pupils equal, round, reactive to light and accommodation, conjunctiva clear without masses or ulcerations, fundi normal. Musculoskeletal: *GAIT AND STATION normal, with normal Romberg testing, no abnormalities such as broad base gait or spasticity *MUSCULOSKELETAL LOWER EXTREMITIES bilateral deltoid, bicep, tricep, bricklayer apprentice strength, hip flexors ,anterior tibialis, dorsoflexion of the foot 4/5 -Patient appears to have intermittent tremors both at rest and at times with action. However, these tremors cease with distraction measures. *MUSCLE TONE IN THE UPPER AND LOWER EXTREMITIES normal. No abnormal movements, fasciculations or atrophy identified. Neurological: *PSYCH anxious appearing *ORIENTATION to time and place *RECURRENT AND REMOTE MEMORY intact *ATTENTION AND CONCENTRATION are normal *LANGUAGE FUNCTION no significant aphasia or dysarthia was noted. *FUND OF KNOWLEDGE aware of current events, past history, vocabulary *MENTAL attention span and concentration normal. *CN II optic fundi were normal, no papilledema noted. *CN III,IV, PERRLA extraocular eye movements were full, no nystagmus and no ptosis noted. *CN V shows normal sensation and jaw opens symmetrically. *CN VII shows normal facial movement symmetrically, upper and lower bilaterally. *CN VIII shows no significant hearing loss on exam *CN IX,,X palate elevated symmetrically *CN XI normal strength in the sternocleidomastoid muscles, symmetrical shoulder shrugging. *CN XII tongue protruded in the midline, with normal strength and movement. *SENSORY EXAMINATION light touch intact *REFLEXES: deep tendon reflexes were normal and symmetrical , grade 2/4 diffusely, no pathological reflexes were noted. *CEREBELLAR TESTING normal finger to nose, heel/knee/holley *PAIN LEVEL 0 Results - Laboratory Findings CBC and BMP: 05/16/18 14:14 05/17/18 05:31 Abnormal lab findings: Abnormal lab results RBC 5.54 M/mcL (3.82-4.97) H 05/16/18 14:14 Hct 45.3 % (35.3-44.9) H 05/16/18 14:14 MCV 81.8 fL (83.0-100.0) L 05/16/18 14:14 MCH 27.3 pg (28.0-33.3) L 05/16/18 14:14 APTT 36.5 Seconds (26.0-36.0) H 05/16/18 14:14 Hemoglobin A1c 5.7 % (-5.6) H 05/17/18 05:31 Serum Total Protein 5.9 g/dL (6.4-8.9) L 05/17/18 05:31 Triglycerides 183 mg/dL (< 150) H 05/17/18 05:31 VLDL Cholesterol, Calc 37 mg/dL (< 31) H 05/17/18 05:31 - Diagnostic Findings Additional findings: CT/CT head/brain wo con IMPRESSION: No acute intracranial abnormality. XR/XR chest 1V portable IMPRESSION: Mild left basilar atelectasis. CT/CT angio head IMPRESSION: No flow limiting stenosis or branch occlusion detected within the head or neck. Consult Discharge Plan - Plan Additional Instructions: Please take medications as prescribed. Please follow-up with primary care physician within one week. Please return to the ED if worsening or new onset of symptoms occurs. Follow-up appointments: If there is not an appointment listed below, please call your physician and schedule a follow-up appointment. If you have congestive heart failure and your symptoms return, make an appointment with your physician. Medication List: Carry an up to date list of medications you are taking at all time. We have given you an updated medication list including any new medications that you have been prescribed. Please provide that list to your primary provider Symptoms: If your condition changes or you experience any of the following symptoms, notify your physician immediately: Unusual or worsening pain, fever, persistent nausea and vomiting, bleeding, increase in swelling (especially in your legs), sudden weight gain, extreme dizziness, chest pain, increased drainage or redness from a wound or incision. Go to the emergency department if you experience a problem with breathing. Weights: If you have a history of swelling or shortness of breath, weigh yourself daily and notify your physician if you have a weight gain of two or more pounds in one day or 5 or more pounds in a week. If you experience any of the warning signs for stroke: Sudden numbness or weakness of the face, arm or leg; especially on one side of the body, sudden confusion, trouble speaking or understanding, sudden trouble seeing in one or both eyes, sudden trouble walking, dizziness, loss of balance or coordination, sudden sever headache with no cause; Call 911 or go to the emergency room. Stroke is a medical emergency. Some risk factors for stroke: Age, cigarette smoking, diabetes, excessive alcohol consumption, family history, high blood pressure, overweight, physical inactivity, prior stroke, heart attack, diagnosis of carotid artery stenosis or other artery disease. If you smoke, STOP: Smoking or tobacco use significantly increases your risk of heart and lung disease. Your chance of disease greatly increases if you continue to smoke. For more information, call the [place] tobacco quit line for smoking cessation 9-214-XXXZ-NOW ( ) Referrals: Wilmer Eldridge MD [Primary Care Provider] - (follow up appointment has been requested. Office will call with date and time of appointment. ) Prescriptions: Aspirin Enteric Coated [Aspirin EC] 81 mg PO DAILY #30 tablet. Atorvastatin [Lipitor] 40 mg PO HS #30 tablet Nicotine Patch [Nicoderm] 14 mg TD DAILY #30 patch.td24 <Patrick Salcedo - Last Filed: 05/17/18 17:30> Date of Encounter: 05/17/18 Assessment and Plan (1) Tremor Status: Acute (2) Acute CVA (cerebrovascular accident) Status: Deleted History of Present Illness HPI: Ms. Alvarado is a 67 year old female All Systems: The remainder of the systems were reviewed and are negative Physical Examination - Vital Signs Vital Signs: Initial Vital Signs Temp Pulse Resp BP Pulse Ox 98.7 F 63 15 128/73 97 05/16/18 13:59 05/16/18 13:59 05/16/18 13:59 05/16/18 13:59 05/16/18 13:59 Results - Laboratory Findings CBC and BMP: 05/16/18 14:14 05/17/18 05:31 Abnormal lab findings: Abnormal lab results RBC 5.54 M/mcL (3.82-4.97) H 05/16/18 14:14 Hct 45.3 % (35.3-44.9) H 05/16/18 14:14 MCV 81.8 fL (83.0-100.0) L 05/16/18 14:14 MCH 27.3 pg (28.0-33.3) L 05/16/18 14:14 APTT 36.5 Seconds (26.0-36.0) H 05/16/18 14:14 Hemoglobin A1c 5.7 % (-5.6) H 05/17/18 05:31 Serum Total Protein 5.9 g/dL (6.4-8.9) L 05/17/18 05:31 Triglycerides 183 mg/dL (< 150) H 05/17/18 05:31 VLDL Cholesterol, Calc 37 mg/dL (< 31) H 05/17/18 05:31
[2018-05-17 15:40] VITALS: BP 141/77
== END 2018-05-17 16:53 | disposition home or self-care (01) | DRG 47 ==
LOC: EMEROOARM 13:53 → 3BNU 13:53 → SUATTDRO 17:24
PROVIDERS: ADMIT Internal Medicine; ATTEND Family Medicine

== ENCOUNTER 2019-02-25 12:28 | Observation (INO) ==
[2019-02-25] MEDS ORDERED: predniSONE 20 MG TABLET PO ONE (12:38)
[2019-02-25 12:55] LABS: Basophils % 0.2 %; Eosinophils % 0.3 %; Hematocrit 43.9 % (35.3-44.9); Hemoglobin 14.7 g/dL (11.5-15.4); Immature Granulocytes % 0.6 % (0-4); Lymphocytes # 2.3 K/mcL (0.6-4.6); Lymphocytes % 17.8 %; Mean Corpuscular HGB Conc 33.5 g/dL (31.6-35.5); Mean Corpuscular Hemoglobin 27.8 pg (28.0-33.3); Mean Platelet Volume 9.3 fL (9.4-12.4); Monocytes # 1.4 K/mcL (0.0-1.3); Monocytes % 10.9 %; Neutrophils # 8.9 K/mcL (1.6-8.9); Platelet Count 354 K/mcL (140-400); Red Blood Count 5.29 M/mcL (3.82-4.97); Red Cell Distribution Width 14.9 % (11.5-14.5); Segmented Neutrophils % 70.2 %; White Blood Count 12.7 K/mcL (4.3-11.1)
[2019-02-25 13:06] LABS: INR 0.9; Prothrombin Time 10.7 Seconds (9.4-12.1)
[2019-02-25 13:09] LABS: Activated Partial Thrombo Time 29.8 Seconds (26.0-36.0)
[2019-02-25] MEDS ORDERED: Ipratropium/Albuterol Neb 3 ML IH ONE (13:11)
[2019-02-25 13:26] LABS: Alanine Aminotransferase 16 Units/L (7-52); Albumin 3.8 g/dL (3.5-5.7); Albumin/Globulin Ratio 1.5 (1.1-2.2); Alkaline Phosphatase 44 Units/L (34-104); Aspartate Amino Transferase 22 Units/L (13-39); BUN/Creatinine Ratio 17 (6-26); Bilirubin,Direct 0.1 mg/dL (0.0-0.2); Bilirubin,Indirect 0.3 mg/dL (0.0-1.0); Bilirubin,Total 0.4 mg/dL (0.3-1.0); Blood Urea Nitrogen 12 mg/dL (8-23); Calcium 9.1 mg/dL (8.6-10.3); Carbon Dioxide 33 mEq/L (23-29); Chloride 103 mEq/L (98-107); Globulin 2.6 g/dL (2.4-3.5); Glucose 123 mg/dL (70-105); Osmolality,Calculated 301 (280-300); Potassium 3.2 mEq/L (3.5-5.1); Sodium 145 mEq/L (136-145); Total Protein 6.4 g/dL (6.4-8.9); Troponin I < 0.03 ng/mL (< 0.04); eGFR For African Americans > 60 (> 60); eGFR For Non-African Americans > 60 (> 60)
[2019-02-25] MEDS ORDERED: Doxycycline 100 MG CAPSULE PO ONE (13:47)
[2019-02-25] MEDS ORDERED: Ondansetron ODT 4 MG TAB.RAPDIS SL PRN (14:22)
[2019-02-25] MEDS ORDERED: Azithromycin 250 MG TABLET PO ONE (14:24)
[2019-02-25 15:47] LABS: Magnesium 2.5 mg/dL (1.6-2.6)
[2019-02-25] MEDS ORDERED: Nicotine 2 MG GUM BC PRN (16:12)
[2019-02-25] MEDS: Ipratropium/Albuterol Neb 3 ML IH SCH ×2 (16:15→20:19)
[2019-02-25 16:20] LABS: Influenza A PCR Negative (Negative); Influenza B PCR Negative (Negative)
[2019-02-25] MEDS: Nicotine 21 MG PATCH.TD24 TD SCH (17:07)
[2019-02-25] MEDS: Acetaminophen 325 MG TABLET PO PRN (21:21)
[2019-02-26] MEDS: Ipratropium/Albuterol Neb 3 ML IH SCH ×6 (00:10→20:12)
[2019-02-26 05:05] LABS: Hematocrit 47.3 % (35.3-44.9); Hemoglobin 15.6 g/dL (11.5-15.4); Mean Corpuscular Hemoglobin 27.8 pg (28.0-33.3); Mean Corpuscular Volume 84.2 fL (83.0-100.0); Mean Platelet Volume 9.3 fL (9.4-12.4); Platelet Count 373 K/mcL (140-400); Red Blood Count 5.62 M/mcL (3.82-4.97); Red Cell Distribution Width 15.4 % (11.5-14.5)
[2019-02-26 05:26] LABS: BUN/Creatinine Ratio 21 (6-26); Blood Urea Nitrogen 14 mg/dL (8-23); Calcium 9.6 mg/dL (8.6-10.3); Carbon Dioxide 27 mEq/L (23-29); Chloride 107 mEq/L (98-107); Glucose 150 mg/dL (70-105); Magnesium 2.5 mg/dL (1.6-2.6); Osmolality,Calculated 297 (280-300); Potassium 4.5 mEq/L (3.5-5.1); Sodium 142 mEq/L (136-145); eGFR For African Americans > 60 (> 60); eGFR For Non-African Americans > 60 (> 60)
[2019-02-26] MEDS: *HR* Enoxaparin 40 MG/0.4 ML SYRINGE SQ SCH (06:02)
[2019-02-26] MEDS: Nicotine 21 MG PATCH.TD24 TD SCH (09:37)
[2019-02-26] MEDS: Azithromycin 250 MG TABLET PO SCH (09:38)
[2019-02-26] MEDS: predniSONE 20 MG TABLET PO SCH (09:38)
[2019-02-26] MEDS: Budesonide/Formoterol 160/4.5 1 PUFF INH IH SCH (20:13)
[2019-02-27] MEDS: Ipratropium/Albuterol Neb 3 ML IH SCH ×3 (00:21→08:04)
[2019-02-27] MEDS: Acetaminophen 325 MG TABLET PO PRN (01:32)
[2019-02-27] MEDS: *HR* Enoxaparin 40 MG/0.4 ML SYRINGE SQ SCH (05:11)
[2019-02-27 07:08] VITALS: BP 132/60
[2019-02-27] MEDS: Budesonide/Formoterol 160/4.5 1 PUFF INH IH SCH (08:04)
[2019-02-27 09:23] LABS: Hematocrit 49.4 % (35.3-44.9); Hemoglobin 15.9 g/dL (11.5-15.4); Mean Corpuscular HGB Conc 32.2 g/dL (31.6-35.5); Mean Corpuscular Volume 83.9 fL (83.0-100.0); Mean Platelet Volume 9.1 fL (9.4-12.4); Platelet Count 422 K/mcL (140-400); Red Blood Count 5.89 M/mcL (3.82-4.97); Red Cell Distribution Width 15.4 % (11.5-14.5); White Blood Count 14.7 K/mcL (4.3-11.1)
[2019-02-27 09:32] LABS: BUN/Creatinine Ratio 37 (6-26); Blood Urea Nitrogen 27 mg/dL (8-23); Calcium 9.7 mg/dL (8.6-10.3); Carbon Dioxide 29 mEq/L (23-29); Chloride 100 mEq/L (98-107); Glucose 85 mg/dL (70-105); Osmolality,Calculated 294 (280-300); Potassium 3.6 mEq/L (3.5-5.1); Sodium 140 mEq/L (136-145); eGFR For African Americans > 60 (> 60); eGFR For Non-African Americans > 60 (> 60)
[2019-02-27] MEDS: predniSONE 20 MG TABLET PO SCH (10:08)
[2019-02-27] MEDS: Nicotine 21 MG PATCH.TD24 TD SCH (10:09)
[2019-02-27] MEDS: Azithromycin 250 MG TABLET PO SCH (10:12)
== END 2019-02-27 10:53 | disposition home or self-care (01) ==
LOC: EMEROOARM 12:28 → 3ANU 12:28 → SUATTDRO 14:01 → 3ANU 15:14
PROVIDERS: ADMIT Internal Medicine; ATTEND Internal Medicine

== ENCOUNTER 2019-03-04 16:32 | Observation (INO) ==
[2019-03-04] MEDS ORDERED: 0.9 % Sodium Chloride 1,000 ML IVC ONE (17:06)
[2019-03-04 17:18] LABS: Basophils % 0.1 %; Hematocrit 46.8 % (35.3-44.9); Hemoglobin 15.8 g/dL (11.5-15.4); Immature Granulocytes % 0.5 % (0-4); Lymphocytes # 0.4 K/mcL (0.6-4.6); Lymphocytes % 2.7 %; Mean Corpuscular HGB Conc 33.8 g/dL (31.6-35.5); Mean Corpuscular Hemoglobin 27.5 pg (28.0-33.3); Mean Corpuscular Volume 81.5 fL (83.0-100.0); Mean Platelet Volume 9.3 fL (9.4-12.4); Monocytes # 0.1 K/mcL (0.0-1.3); Monocytes % 0.7 %; Neutrophils # 15.3 K/mcL (1.6-8.9); Platelet Count 337 K/mcL (140-400); Red Blood Count 5.74 M/mcL (3.82-4.97); Red Cell Distribution Width 14.3 % (11.5-14.5); White Blood Count 15.9 K/mcL (4.3-11.1)
[2019-03-04 17:39] LABS: BUN/Creatinine Ratio 19 (6-26); Blood Urea Nitrogen 14 mg/dL (8-23); Calcium 8.9 mg/dL (8.6-10.3); Carbon Dioxide 29 mEq/L (23-29); Chloride 98 mEq/L (98-107); Glucose 186 mg/dL (70-105); Osmolality,Calculated 289 (280-300); Potassium 3.2 mEq/L (3.5-5.1); Sodium 137 mEq/L (136-145); Troponin I < 0.03 ng/mL (< 0.04); eGFR For African Americans > 60 (> 60); eGFR For Non-African Americans > 60 (> 60)
[2019-03-04 17:50] LABS: Bilirubin,Urine Small (Negative); Blood,Urine Negative (Negative); Clarity,Urine Clear (Clear); Color,Urine Yellow (Yellow); Glucose,Urine (UA) 250 mg/dL (Normal); Ketones,Urine 15 mg/dL (Negative); Leukocyte Esterase,Urine Small (Negative); Nitrite,Urine Negative (Negative); PH,Urine 5.5 pH Units (5.0-8.0); Protein,Urine Negative (Neg-Trace); Specific Gravity,Urine 1.023 (1.010-1.025); Urobilinogen,Urine Normal (Normal)
[2019-03-04 17:57] LABS: Bacteria,Urine None Seen per hpf (None-Few); Hyaline Casts,Urine None Seen per lpf (None-Few); Squamous Epithelial Cell,Urine Many per lpf (None-Few)
[2019-03-04] MEDS ORDERED: Azithromycin 500 MG in D5% in Water 250 ML IVPB ONE (18:25)
[2019-03-04] MEDS ORDERED: cefTRIAXone 1,000 MG in Water for inj. (sterile) 10 ML IVP ONE (18:25)
[2019-03-04] MEDS ORDERED: Cefepime HCl 1,000 MG in Water for inj. (sterile) 10 ML IVP STA (18:32)
[2019-03-04] MEDS ORDERED: Naloxone 0.4 MG/ML INJ IVP PRN (21:42)
[2019-03-04] MEDS ORDERED: Isovue-370 500 ML BOTTLE IVP ONE (21:57)
[2019-03-04] MEDS ORDERED: Nicotine 14 MG PATCH.TD24 TD SCH (22:00)
[2019-03-04] MEDS: Budesonide/Formoterol 160/4.5 1 PUFF INH IH SCH (22:07)
[2019-03-04 22:16] LABS: Magnesium 1.9 mg/dL (1.6-2.6); Phosphorous 2.3 mg/dL (2.7-4.5)
[2019-03-04 22:17] LABS: INR 1.1
[2019-03-04] MEDS: *HR* Heparin 5,000 UNIT/ML VIAL SQ SCH (22:27)
[2019-03-04] MEDS: Divalproex (12 HR) 500 MG TABLET PO SCH (22:27)
[2019-03-04] MEDS ORDERED: Albuterol 2.5 MG/3 ML NEBULIZER IH PRN (22:31)
[2019-03-05 00:26] LABS: Basophils % 0.1 %; Hematocrit 42.3 % (35.3-44.9); Immature Granulocytes % 0.6 % (0-4); Lymphocytes # 1.6 K/mcL (0.6-4.6); Lymphocytes % 13.5 %; Mean Corpuscular HGB Conc 33.3 g/dL (31.6-35.5); Mean Corpuscular Hemoglobin 27.3 pg (28.0-33.3); Mean Platelet Volume 9.2 fL (9.4-12.4); Monocytes # 0.4 K/mcL (0.0-1.3); Monocytes % 2.9 %; Neutrophils # 9.9 K/mcL (1.6-8.9); Platelet Count 294 K/mcL (140-400); Red Blood Count 5.16 M/mcL (3.82-4.97); Red Cell Distribution Width 14.3 % (11.5-14.5); Segmented Neutrophils % 82.9 %
[2019-03-05 00:27] LABS: Hemoglobin 14.1 g/dL (11.5-15.4)
[2019-03-05] MEDS: Ipratropium/Albuterol Neb 3 ML IH SCH ×7 (00:29→23:39)
[2019-03-05 00:49] LABS: Alanine Aminotransferase 13 Units/L (7-52); Albumin/Globulin Ratio 1.3 (1.1-2.2); Alkaline Phosphatase 34 Units/L (34-104); Aspartate Amino Transferase 11 Units/L (13-39); Bilirubin,Total 0.5 mg/dL (0.3-1.0); Blood Urea Nitrogen 10 mg/dL (8-23); Calcium 8.6 mg/dL (8.6-10.3); Carbon Dioxide 25 mEq/L (23-29); Chloride 105 mEq/L (98-107); Globulin 2.3 g/dL (2.4-3.5); Glucose 166 mg/dL (70-105); Osmolality,Calculated 281 (280-300); Potassium 3.9 mEq/L (3.5-5.1); Sodium 134 mEq/L (136-145); Total Protein 5.3 g/dL (6.4-8.9)
[2019-03-05 01:13] LABS: BUN/Creatinine Ratio 16 (6-26); eGFR For African Americans > 60 (> 60); eGFR For Non-African Americans > 60 (> 60)
[2019-03-05 02:44] LABS: Adenovirus Not Detected (Not Detect); Bordetella Pertussis Not Detected (Not Detect); Chlamydophila pneumoniae Not Detected (Not Detect); Coronavirus 229E Not Detected (Not Detect); Coronavirus HKU1 Not Detected (Not Detect); Coronavirus NL63 Not Detected (Not Detect); Coronavirus OC43 Not Detected (Not Detect); Human Metapneumovirus Not Detected (Not Detect); Human Rhinovirus/Enterovirus Not Detected (Not Detect); Influenza A Subtype 2009 H1 Not Detected (Not Detect); Influenza A Untypeable Not Detected (Not Detect); Influenza B Not Detected (Not Detect); Mycoplasma pneumoniae Not Detected (Not Detect); Parainfluenza Virus 1 Not Detected (Not Detect); Parainfluenza Virus 2 Not Detected (Not Detect); Parainfluenza Virus 3 Not Detected (Not Detect); Parainfluenza Virus 4 Not Detected (Not Detect); Respiratory Syncytial Virus Not Detected (Not Detect)
[2019-03-05] MEDS: *HR* Heparin 5,000 UNIT/ML VIAL SQ SCH ×3 (05:35→21:26)
[2019-03-05] MEDS: Budesonide/Formoterol 160/4.5 1 PUFF INH IH SCH ×2 (07:30→19:40)
[2019-03-05] MEDS ORDERED: Azithromycin 500 MG in 0.9 % Sodium Chloride 250 ML IVPB SCH (08:00)
[2019-03-05] MEDS: MethylPREDNISolone 40 MG/ML VIAL IVP SCH ×2 (08:28→17:19)
[2019-03-05] MEDS: Nicotine 14 MG PATCH.TD24 TD SCH (08:29)
[2019-03-05] MEDS: amLODIPine 5 MG TABLET PO SCH (08:29)
[2019-03-05] MEDS: Divalproex (12 HR) 500 MG TABLET PO SCH ×3 (08:29→21:26)
[2019-03-05] MEDS: Azithromycin 500 MG in 0.9 % Sodium Chloride 250 ML IVPB SCH (08:29)
[2019-03-05] MEDS ORDERED: predniSONE 20 MG TABLET PO SCH (09:00)
[2019-03-05] MEDS ORDERED: NON-FORMULARY MEDICATION 1 EACH EACH (Roflumilast [Daliresp] 500 MCG) PO SCH (09:00)
[2019-03-05] MEDS ORDERED: Tiotropium 18 MCG inhalation IH SCH (10:00)
[2019-03-05] MEDS ORDERED: Budesonide/Formoterol 80/4.5 1 PUFF INH IH SCH (10:00)
[2019-03-05] MEDS ORDERED: Fluconazole 100 MG TABLET PO ONE (14:12)
[2019-03-06] MEDS: Ipratropium/Albuterol Neb 3 ML IH SCH ×5 (03:56→19:36)
[2019-03-06 05:20] LABS: Hematocrit 46.3 % (35.3-44.9); Hemoglobin 15.6 g/dL (11.5-15.4); Mean Corpuscular HGB Conc 33.7 g/dL (31.6-35.5); Mean Corpuscular Hemoglobin 27.4 pg (28.0-33.3); Mean Corpuscular Volume 81.4 fL (83.0-100.0); Mean Platelet Volume 9.6 fL (9.4-12.4); Platelet Count 340 K/mcL (140-400); Red Blood Count 5.69 M/mcL (3.82-4.97); Red Cell Distribution Width 14.5 % (11.5-14.5); White Blood Count 11.5 K/mcL (4.3-11.1)
[2019-03-06] MEDS: MethylPREDNISolone 40 MG/ML VIAL IVP SCH ×2 (05:42→17:19)
[2019-03-06] MEDS: *HR* Heparin 5,000 UNIT/ML VIAL SQ SCH ×3 (05:42→20:40)
[2019-03-06 06:04] LABS: Blood Urea Nitrogen 22 mg/dL (8-23); Calcium 9.2 mg/dL (8.6-10.3); Chloride 104 mEq/L (98-107); Glucose 121 mg/dL (70-105); Osmolality,Calculated 293 (280-300); Potassium 4.2 mEq/L (3.5-5.1); Sodium 139 mEq/L (136-145)
[2019-03-06 06:30] LABS: BUN/Creatinine Ratio 34 (6-26); Carbon Dioxide 25 mEq/L (23-29); eGFR For African Americans > 60 (> 60); eGFR For Non-African Americans > 60 (> 60)
[2019-03-06] MEDS: Budesonide/Formoterol 160/4.5 1 PUFF INH IH SCH ×2 (07:45→19:37)
[2019-03-06] MEDS: Nicotine 14 MG PATCH.TD24 TD SCH (09:44)
[2019-03-06] MEDS: amLODIPine 5 MG TABLET PO SCH (09:44)
[2019-03-06] MEDS: Divalproex (12 HR) 500 MG TABLET PO SCH ×3 (09:44→20:40)
[2019-03-06] MEDS: Fluconazole 100 MG TABLET PO SCH (09:44)
[2019-03-06] MEDS: Azithromycin 500 MG in 0.9 % Sodium Chloride 250 ML IVPB SCH (09:45)
[2019-03-07] MEDS: Ipratropium/Albuterol Neb 3 ML IH SCH ×5 (00:02→15:44)
[2019-03-07] MEDS: MethylPREDNISolone 40 MG/ML VIAL IVP SCH (06:39)
[2019-03-07] MEDS: *HR* Heparin 5,000 UNIT/ML VIAL SQ SCH ×2 (06:39→14:19)
[2019-03-07] MEDS: Budesonide/Formoterol 160/4.5 1 PUFF INH IH SCH (07:33)
[2019-03-07] MEDS: Nicotine 14 MG PATCH.TD24 TD SCH (08:03)
[2019-03-07] MEDS: amLODIPine 5 MG TABLET PO SCH (08:03)
[2019-03-07] MEDS: Fluconazole 100 MG TABLET PO SCH (08:03)
[2019-03-07] MEDS: Divalproex (12 HR) 500 MG TABLET PO SCH ×2 (08:03→14:32)
[2019-03-07] MEDS ORDERED: Azithromycin 250 MG TABLET PO SCH (09:00)
[2019-03-07] MEDS ORDERED: *HR* LORazepam 0.5 MG TABLET PO ONE (09:45)
[2019-03-07 16:07] VITALS: BP 99/61
[2019-03-07] MEDS ORDERED: predniSONE 20 MG TABLET PO SCH (17:00)
== END 2019-03-07 18:19 ==
LOC: EMEROOARM 16:32 → 2ANU 16:32 → SUATTDRO 18:38 → 2ANU 19:12
PROVIDERS: ADMIT Internal Medicine; ATTEND Internal Medicine

== ENCOUNTER 2019-04-06 11:38 | Observation (INO) ==
[2019-04-06 13:46] LABS: Basophils # 0.1 K/mcL (0.0-0.2); Basophils % 0.7 %; Eosinophils # 0.1 K/mcL (0.0-0.6); Eosinophils % 1.3 %; Hematocrit 41.1 % (35.3-44.9); Hemoglobin 13.7 g/dL (11.5-15.4); Immature Granulocytes % 0.2 % (0-4); Lymphocytes # 3.8 K/mcL (0.6-4.6); Lymphocytes % 43.2 %; Mean Corpuscular HGB Conc 33.3 g/dL (31.6-35.5); Mean Corpuscular Hemoglobin 27.8 pg (28.0-33.3); Mean Corpuscular Volume 83.5 fL (83.0-100.0); Mean Platelet Volume 9.8 fL (9.4-12.4); Monocytes # 0.7 K/mcL (0.0-1.3); Neutrophils # 4.1 K/mcL (1.6-8.9); Platelet Count 265 K/mcL (140-400); Red Blood Count 4.92 M/mcL (3.82-4.97); Red Cell Distribution Width 15.3 % (11.5-14.5); Segmented Neutrophils % 46.6 %; White Blood Count 8.7 K/mcL (4.3-11.1)
[2019-04-06 14:05] LABS: BUN/Creatinine Ratio 18 (6-26); Blood Urea Nitrogen 12 mg/dL (8-23); Calcium 9.1 mg/dL (8.6-10.3); Carbon Dioxide 24 mEq/L (23-29); Chloride 106 mEq/L (98-107); Glucose 101 mg/dL (70-105); Magnesium 1.9 mg/dL (1.6-2.6); Osmolality,Calculated 290 (280-300); Potassium 3.5 mEq/L (3.5-5.1); Sodium 140 mEq/L (136-145); Troponin I < 0.03 ng/mL (< 0.04); eGFR For African Americans > 60 (> 60); eGFR For Non-African Americans > 60 (> 60)
[2019-04-06 14:09] LABS: Bilirubin,Urine Negative (Negative); Blood,Urine Negative (Negative); Clarity,Urine Cloudy (Clear); Color,Urine Yellow (Yellow); Glucose,Urine (UA) Normal (Normal); Ketones,Urine Trace mg/dL (Negative); Leukocyte Esterase,Urine Negative (Negative); Nitrite,Urine Negative (Negative); PH,Urine 5.5 pH Units (5.0-8.0); Protein,Urine Negative (Neg-Trace); Specific Gravity,Urine 1.018 (1.010-1.025); Urobilinogen,Urine Normal (Normal)
[2019-04-06 14:11] LABS: Bacteria,Urine None Seen per hpf (None-Few); Hyaline Casts,Urine None Seen per lpf (None-Few); RBC,Urine 0-3 per hpf (0-3); Squamous Epithelial Cell,Urine Many per lpf (None-Few); WBC,Urine 0-3 per hpf (0-3)
[2019-04-06] MEDS ORDERED: Naloxone 0.4 MG/ML INJ IVP PRN (15:21)
[2019-04-06] MEDS ORDERED: Ipratropium/Albuterol Neb 3 ML IH PRN (15:23)
[2019-04-06] MEDS ORDERED: Ringers Solution, Lactated 500 ML IVC ONE (15:43)
[2019-04-06] MEDS ORDERED: *HR* LORazepam 1 MG TABLET PO PRN (15:46)
[2019-04-06 16:49] LABS: Albumin 3.5 g/dL (3.5-5.7); Albumin/Globulin Ratio 1.4 (1.1-2.2); Bilirubin,Direct 0.2 mg/dL (0.0-0.2); Bilirubin,Indirect 0.6 mg/dL (0.0-1.0); Bilirubin,Total 0.8 mg/dL (0.3-1.0); Globulin 2.5 g/dL (2.4-3.5)
[2019-04-06 17:01] LABS: Thyroid Stimulating Hormone 0.216 mcIU/mL (0.340-5.600)
[2019-04-06 17:13] LABS: Folate 12.8 ng/mL (3.0-16.0)
[2019-04-06] MEDS: *HR* Heparin 5,000 UNIT/ML VIAL SQ SCH (19:12)
[2019-04-06 19:52] LABS: Amphetamine Screen,Urine Negative ng/mL (Cutoff=1000); Barbiturate Screen,Urine Negative ng/mL (Cutoff=200); Benzodiazepines Screen,Urine Negative ng/mL (Cutoff=200); Cannabinoid Screen,Urine Positive ng/mL (Cutoff = 50); Cocaine Screen,Urine Negative ng/mL (Cutoff= 300); Opiate Screen,Urine Negative ng/mL (Cutoff=300); Phencyclidine Screen,Urine Negative ng/mL (Cutoff=25)
[2019-04-07] MEDS: *HR* Heparin 5,000 UNIT/ML VIAL SQ SCH ×2 (06:24→18:39)
[2019-04-07 10:56] LABS: Triiodothyronine (T3) Total 1.2 ng/mL (0.87-1.78)
[2019-04-07] MEDS ORDERED: Acetaminophen 325 MG TABLET PO PRN (19:37)
[2019-04-08] MEDS: *HR* Heparin 5,000 UNIT/ML VIAL SQ SCH (04:52)
[2019-04-08] MEDS ORDERED: hydrOXYzine pamoate 25 MG CAPSULE PO PRN (07:27)
[2019-04-08 08:47] LABS: Basophils # 0.1 K/mcL (0.0-0.2); Basophils % 0.8 %; Eosinophils # 0.2 K/mcL (0.0-0.6); Hematocrit 42.8 % (35.3-44.9); Hemoglobin 14.2 g/dL (11.5-15.4); Immature Granulocytes % 0.2 % (0-4); Lymphocytes # 4.6 K/mcL (0.6-4.6); Lymphocytes % 49.5 %; Mean Corpuscular HGB Conc 33.2 g/dL (31.6-35.5); Mean Corpuscular Hemoglobin 27.6 pg (28.0-33.3); Mean Corpuscular Volume 83.3 fL (83.0-100.0); Mean Platelet Volume 10.1 fL (9.4-12.4); Monocytes # 0.8 K/mcL (0.0-1.3); Monocytes % 8.2 %; Neutrophils # 3.7 K/mcL (1.6-8.9); Platelet Count 272 K/mcL (140-400); Red Blood Count 5.14 M/mcL (3.82-4.97); Red Cell Distribution Width 14.9 % (11.5-14.5); Segmented Neutrophils % 39.3 %; White Blood Count 9.3 K/mcL (4.3-11.1)
[2019-04-08] MEDS ORDERED: Divalproex (12 HR) 500 MG TABLET PO SCH (09:00)
[2019-04-08] MEDS ORDERED: Roflumilast [Daliresp] 500 MCG PO SCH (09:00)
[2019-04-08] MEDS ORDERED: Nicotine 14 MG PATCH.TD24 TD SCH (09:00)
[2019-04-08] MEDS ORDERED: Tiotropium 18 MCG inhalation IH SCH (09:00)
[2019-04-08] MEDS ORDERED: NON-FORMULARY MEDICATION 1 EACH EACH (Fluticasone/Vilanterol [Breo Ellipta 100-25 Mcg Inh] IH SCH (09:00)
[2019-04-08 09:09] LABS: BUN/Creatinine Ratio 19 (6-26); Blood Urea Nitrogen 12 mg/dL (8-23); Calcium 9.5 mg/dL (8.6-10.3); Carbon Dioxide 27 mEq/L (23-29); Chloride 104 mEq/L (98-107); Glucose 152 mg/dL (70-105); Magnesium 1.9 mg/dL (1.6-2.6); Osmolality,Calculated 297 (280-300); Phosphorous 3.3 mg/dL (2.7-4.5); Potassium 3.1 mEq/L (3.5-5.1); Sodium 142 mEq/L (136-145); eGFR For African Americans > 60 (> 60); eGFR For Non-African Americans > 60 (> 60)
[2019-04-08] MEDS ORDERED: Budesonide/Formoterol 160/4.5 1 PUFF INH IH SCH (10:00)
[2019-04-08 10:41] VITALS: BP 128/79
== END 2019-04-08 12:10 | disposition home health service (06) ==
LOC: EMEROOARM 11:38 → 3BNU 11:38 → SUATTDRO 16:43 → 3BNU 18:15 → 1NENUPED 04-08 00:46
PROVIDERS: ADMIT Internal Medicine; ATTEND Internal Medicine

== ENCOUNTER 2020-01-02 10:28 | Observation (INO) ==
[2020-01-02 11:35] LABS: Basophils # 0.1 K/mcL (0.0-0.2); Basophils % 0.5 %; Eosinophils # 0.1 K/mcL (0.0-0.6); Eosinophils % 0.6 %; Hematocrit 45.6 % (35.3-44.9); Hemoglobin 14.6 g/dL (11.5-15.4); Immature Granulocytes % 0.5 % (0-4); Lymphocytes # 2.4 K/mcL (0.6-4.6); Lymphocytes % 21.4 %; Mean Corpuscular Hemoglobin 27.5 pg (28.0-33.3); Mean Corpuscular Volume 85.9 fL (83.0-100.0); Mean Platelet Volume 8.8 fL (9.4-12.4); Monocytes # 0.5 K/mcL (0.0-1.3); Monocytes % 4.5 %; Platelet Count 351 K/mcL (140-400); Red Blood Count 5.31 M/mcL (3.82-4.97); Red Cell Distribution Width 15.5 % (11.5-14.5); Segmented Neutrophils % 72.5 %
[2020-01-02 11:51] LABS: Alanine Aminotransferase 19 Units/L (7-52); Albumin 4.1 g/dL (3.5-5.7); Albumin/Globulin Ratio 1.5 (1.1-2.2); Alkaline Phosphatase 52 Units/L (34-104); Aspartate Amino Transferase 24 Units/L (13-39); BUN/Creatinine Ratio 20 (6-26); Bilirubin,Total 0.4 mg/dL (0.3-1.0); Blood Urea Nitrogen 17 mg/dL (8-23); Calcium 9.2 mg/dL (8.6-10.3); Carbon Dioxide 30 mEq/L (23-29); Chloride 101 mEq/L (98-107); Glucose 126 mg/dL (70-105); Osmolality,Calculated 291 (280-300); Potassium 3.6 mEq/L (3.5-5.1); Sodium 139 mEq/L (136-145); Total Protein 6.9 g/dL (6.4-8.9); eGFR For African Americans > 60 (> 60); eGFR For Non-African Americans > 60 (> 60)
[2020-01-02 11:52] LABS: Globulin 2.8 g/dL (2.4-3.5)
[2020-01-02] MEDS ORDERED: Isovue-370 500 ML BOTTLE IVP ONE ×2 (11:54→16:28)
[2020-01-02] MEDS ORDERED: Ondansetron 4 MG/2 ML VIAL IVP ONE (12:37)
[2020-01-02] MEDS ORDERED: *HR* HYDROcodone/Acet 5/325 mg TABLET PO ONE (12:37)
[2020-01-02] MEDS ORDERED: 0.9 % Sodium Chloride 1,000 ML IVC SCH (12:45)
[2020-01-02] MEDS ORDERED: MOM Conc 10 ML UD.LIQ PO PRN (16:04)
[2020-01-02] MEDS ORDERED: Naloxone 0.4 MG/ML INJ IVP PRN (16:04)
[2020-01-02] MEDS ORDERED: Ondansetron 4 MG/2 ML VIAL IVP PRN (16:04)
[2020-01-02] MEDS ORDERED: Acetaminophen 325 MG TABLET PO PRN (16:15)
[2020-01-02] MEDS: Ringers Solution, Lactated 1,000 ML IVC SCH (17:36)
[2020-01-02 17:46] LABS: Carcinoembryonic Antigen 4.9 ng/mL (Less than 5.0)
[2020-01-02 18:12] LABS: Folate 21.2 ng/mL (3.0-16.0)
[2020-01-02] MEDS: *HR* HYDROcodone/Acet 5/325 mg TABLET PO PRN (21:05)
[2020-01-03 03:16] LABS: Basophils # 0.1 K/mcL (0.0-0.2); Basophils % 0.5 %; Eosinophils # 0.1 K/mcL (0.0-0.6); Eosinophils % 0.5 %; Hematocrit 47.9 % (35.3-44.9); Immature Granulocytes % 0.5 % (0-4); Lymphocytes # 4.5 K/mcL (0.6-4.6); Lymphocytes % 36.7 %; Mean Corpuscular HGB Conc 31.3 g/dL (31.6-35.5); Mean Corpuscular Hemoglobin 26.9 pg (28.0-33.3); Monocytes # 0.8 K/mcL (0.0-1.3); Monocytes % 6.4 %; Neutrophils # 6.7 K/mcL (1.6-8.9); Platelet Count 358 K/mcL (140-400); Red Blood Count 5.57 M/mcL (3.82-4.97); Red Cell Distribution Width 15.6 % (11.5-14.5); Segmented Neutrophils % 55.4 %; White Blood Count 12.2 K/mcL (4.3-11.1)
[2020-01-03 03:33] LABS: BUN/Creatinine Ratio 20 (6-26); Blood Urea Nitrogen 16 mg/dL (8-23); Calcium 9.6 mg/dL (8.6-10.3); Carbon Dioxide 35 mEq/L (23-29); Chloride 100 mEq/L (98-107); Glucose 88 mg/dL (70-105); Magnesium 2.5 mg/dL (1.6-2.6); Osmolality,Calculated 293 (280-300); Potassium 3.9 mEq/L (3.5-5.1); Sodium 141 mEq/L (136-145); eGFR For African Americans > 60 (> 60); eGFR For Non-African Americans > 60 (> 60)
[2020-01-03 04:00] LABS: Bilirubin,Urine Negative (Negative); Blood,Urine Negative (Negative); Clarity,Urine Clear (Clear); Color,Urine Light-Yellow (Yellow); Glucose,Urine (UA) Normal (Normal); Ketones,Urine Negative (Negative); Leukocyte Esterase,Urine Negative (Negative); Nitrite,Urine Negative (Negative); Protein,Urine Negative (Neg-Trace); Specific Gravity,Urine > 1.030 (1.010-1.025); Urobilinogen,Urine Normal (Normal)
[2020-01-03 04:11] LABS: Amphetamine Screen,Urine Negative ng/mL (Cutoff=1000); Barbiturate Screen,Urine Negative ng/mL (Cutoff=200); Benzodiazepines Screen,Urine Negative ng/mL (Cutoff=200); Cannabinoid Screen,Urine Positive ng/mL (Cutoff = 50); Cocaine Screen,Urine Negative ng/mL (Cutoff= 300); Opiate Screen,Urine Positive ng/mL (Cutoff=300); Phencyclidine Screen,Urine Negative ng/mL (Cutoff=25)
[2020-01-03] MEDS: Ringers Solution, Lactated 1,000 ML IVC SCH ×2 (05:21→18:36)
[2020-01-03] MEDS: *HR* Enoxaparin 40 MG/0.4 ML SYRINGE SQ SCH (05:22)
[2020-01-03] MEDS ORDERED: hydrOXYzine pamoate 25 MG CAPSULE PO PRN (07:55)
[2020-01-03] MEDS ORDERED: Indomethacin 25 MG CAPSULE PO PRN (07:55)
[2020-01-03] MEDS: Carbidopa/Levodopa 25/100 TABLET PO SCH ×2 (08:49→19:46)
[2020-01-03] MEDS: *HR* HYDROcodone/Acet 5/325 mg TABLET PO PRN ×2 (08:49→18:36)
[2020-01-03] MEDS: Fluticasone Propionate Nasal 50 MCG/SPRAY BOTTLE NS SCH (08:50)
[2020-01-03] MEDS: amLODIPine 5 MG TABLET PO SCH (08:50)
[2020-01-03] MEDS: Nicotine 14 MG PATCH.TD24 TD SCH (08:50)
[2020-01-03] MEDS: QUEtiapine Fumarate 25 MG TABLET PO SCH (08:50)
[2020-01-03] MEDS: (Roflumilast [Daliresp] 500 MCG) PO SCH (08:57)
[2020-01-03] MEDS: Tiotropium 18 MCG inhalation IH SCH (19:11)
[2020-01-03] MEDS: Budesonide/Formoterol 160/4.5 1 PUFF INH IH SCH ×2 (19:11→19:55)
[2020-01-03] MEDS ORDERED: QUEtiapine Fumarate 100 MG TABLET PO SCH (21:00)
[2020-01-03] MEDS ORDERED: traZODone 50 MG TABLET PO SCH (21:00)
[2020-01-04 02:07] LABS: Basophils % 0.4 %; Eosinophils # 0.1 K/mcL (0.0-0.6); Eosinophils % 0.8 %; Hematocrit 38.9 % (35.3-44.9); Immature Granulocytes % 0.4 % (0-4); Lymphocytes # 3.9 K/mcL (0.6-4.6); Lymphocytes % 38.4 %; Mean Corpuscular HGB Conc 30.8 g/dL (31.6-35.5); Mean Corpuscular Hemoglobin 26.4 pg (28.0-33.3); Mean Corpuscular Volume 85.7 fL (83.0-100.0); Mean Platelet Volume 9.1 fL (9.4-12.4); Monocytes # 0.6 K/mcL (0.0-1.3); Monocytes % 6.2 %; Neutrophils # 5.4 K/mcL (1.6-8.9); Platelet Count 279 K/mcL (140-400); Red Blood Count 4.54 M/mcL (3.82-4.97); Red Cell Distribution Width 15.3 % (11.5-14.5); Segmented Neutrophils % 53.8 %; White Blood Count 10.1 K/mcL (4.3-11.1)
[2020-01-04 02:34] LABS: Alanine Aminotransferase < 3 Units/L (7-52); Albumin 3.1 g/dL (3.5-5.7); Albumin/Globulin Ratio 1.5 (1.1-2.2); Alkaline Phosphatase 39 Units/L (34-104); Aspartate Amino Transferase 19 Units/L (13-39); BUN/Creatinine Ratio 20 (6-26); Bilirubin,Total 0.3 mg/dL (0.3-1.0); Blood Urea Nitrogen 17 mg/dL (8-23); Calcium 8.5 mg/dL (8.6-10.3); Carbon Dioxide 35 mEq/L (23-29); Chloride 100 mEq/L (98-107); Globulin 2.1 g/dL (2.4-3.5); Glucose 104 mg/dL (70-105); Osmolality,Calculated 288 (280-300); Potassium 3.5 mEq/L (3.5-5.1); Sodium 138 mEq/L (136-145); Total Protein 5.2 g/dL (6.4-8.9); eGFR For African Americans > 60 (> 60); eGFR For Non-African Americans > 60 (> 60)
[2020-01-04] MEDS: *HR* Enoxaparin 40 MG/0.4 ML SYRINGE SQ SCH (04:49)
[2020-01-04] MEDS: Ringers Solution, Lactated 1,000 ML IVC SCH (04:50)
[2020-01-04 07:05] VITALS: BP 120/67
[2020-01-04] MEDS: Carbidopa/Levodopa 25/100 TABLET PO SCH (07:31)
[2020-01-04] MEDS: amLODIPine 5 MG TABLET PO SCH (07:31)
[2020-01-04] MEDS: Nicotine 14 MG PATCH.TD24 TD SCH (07:31)
[2020-01-04] MEDS: Fluticasone Propionate Nasal 50 MCG/SPRAY BOTTLE NS SCH (07:31)
[2020-01-04] MEDS: QUEtiapine Fumarate 25 MG TABLET PO SCH (07:31)
[2020-01-04] MEDS: (Roflumilast [Daliresp] 500 MCG) PO SCH (07:37)
[2020-01-04] MEDS: Tiotropium 18 MCG inhalation IH SCH (10:33)
[2020-01-04] MEDS: Budesonide/Formoterol 160/4.5 1 PUFF INH IH SCH (10:33)
== END 2020-01-04 11:59 | disposition home or self-care (01) ==
LOC: 3BNU 10:28 → EMEROOARM 10:28 → SUATTDRO 15:59 → 3BNU 16:43
PROVIDERS: ADMIT Internal Medicine; ATTEND Internal Medicine

== ENCOUNTER 2020-06-23 12:56 | Inpatient (IN) ==
[2020-06-23] MEDS ORDERED: Ondansetron 4 MG/2 ML VIAL IVP PRN (16:11)
[2020-06-23] MEDS ORDERED: Naloxone 0.4 MG/ML INJ IVP PRN (16:11)
[2020-06-23] MEDS ORDERED: 0.9 % Sodium Chloride 1,000 ML IVC SCH (16:15)
[2020-06-23] MEDS ORDERED: traZODone 50 MG TABLET PO SCH (21:00)
[2020-06-23] MEDS: Gabapentin 300 MG CAPSULE PO SCH (21:09)
[2020-06-23] MEDS: Carbidopa/Levodopa 25/100 TABLET PO SCH (21:09)
[2020-06-23] MEDS: *HR* OxyCODONE/APAP 5/325 TABLET PO PRN (21:27)
[2020-06-23] MEDS: Budesonide/Formoterol 160/4.5 1 PUFF INH IH SCH (23:02)
[2020-06-24 02:38] LABS: Basophils % 0.4 %; Eosinophils # 0.1 K/mcL (0.0-0.6); Eosinophils % 1.1 %; Hematocrit 38.1 % (35.3-44.9); Hemoglobin 12.2 g/dL (11.5-15.4); Immature Granulocytes % 0.3 % (0-4); Lymphocytes # 3.2 K/mcL (0.6-4.6); Lymphocytes % 33.9 %; Mean Corpuscular Hemoglobin 27.4 pg (28.0-33.3); Mean Corpuscular Volume 85.6 fL (83.0-100.0); Mean Platelet Volume 8.7 fL (9.4-12.4); Monocytes # 0.8 K/mcL (0.0-1.3); Monocytes % 8.6 %; Neutrophils # 5.2 K/mcL (1.6-8.9); Platelet Count 248 K/mcL (140-400); Red Blood Count 4.45 M/mcL (3.82-4.97); Red Cell Distribution Width 14.6 % (11.5-14.5); Segmented Neutrophils % 55.7 %; White Blood Count 9.3 K/mcL (4.3-11.1)
[2020-06-24 02:46] LABS: INR 1.1; Prothrombin Time 12.5 Seconds (9.4-12.1)
[2020-06-24 02:49] LABS: Activated Partial Thrombo Time 31.9 Seconds (26.0-36.0)
[2020-06-24] MEDS: *HR* OxyCODONE/APAP 10/325 TABLET PO PRN ×3 (02:50→22:21)
[2020-06-24 02:59] LABS: BUN/Creatinine Ratio 12 (6-26); Blood Urea Nitrogen 7 mg/dL (8-23); Calcium 8.4 mg/dL (8.6-10.3); Carbon Dioxide 30 mEq/L (23-29); Chloride 103 mEq/L (98-107); Glucose 93 mg/dL (70-105); Osmolality,Calculated 280 (280-300); Phosphorous 2.6 mg/dL (2.7-4.5); Potassium 3.5 mEq/L (3.5-5.1); Sodium 136 mEq/L (136-145); eGFR For African Americans > 60 (> 60); eGFR For Non-African Americans > 60 (> 60)
[2020-06-24] MEDS: Gabapentin 300 MG CAPSULE PO SCH ×2 (08:06→22:20)
[2020-06-24] MEDS: Carbidopa/Levodopa 25/100 TABLET PO SCH ×2 (08:06→22:23)
[2020-06-24] MEDS: *HR* OxyCODONE/APAP 5/325 TABLET PO PRN (08:07)
[2020-06-24] MEDS ORDERED: amLODIPine 5 MG TABLET PO SCH (09:00)
[2020-06-24] MEDS ORDERED: hydrOXYzine pamoate 25 MG CAPSULE PO SCH (09:00)
[2020-06-24] MEDS ORDERED: QUEtiapine Fumarate 25 MG TABLET PO SCH (09:00)
[2020-06-24] MEDS: Budesonide/Formoterol 160/4.5 1 PUFF INH IH SCH ×2 (09:26→22:41)
[2020-06-24] MEDS ORDERED: Tiotropium 10 INH DOSE IH SCH (10:00)
[2020-06-24] MEDS ORDERED: Lidocaine -MPF 2% 2 ML VIAL ONE (12:54)
[2020-06-24] MEDS ORDERED: *HR* FentaNYL (PF) 100 MCG/2 ML VIAL ONE ×2 (12:54→14:14)
[2020-06-24] MEDS ORDERED: *HR* Propofol 200 MG/20 ML VIAL IVP ONE (12:54)
[2020-06-24] MEDS ORDERED: Lidocaine HCL 4 ML Topical Solution (Laryng-O-Jet Kit Sterile Pak) TP ONE (14:13)
[2020-06-24] MEDS ORDERED: Clindamycin 900 MG/50 ML 900 MG/50 ML IV.SOLN IVPB ONE ×2 (14:27→14:32)
[2020-06-24] MEDS ORDERED: *HR* PHENYLEPHRINE 1,000 MCG/10 ML SYRINGE IVP ONE (14:53)
[2020-06-24] MEDS ORDERED: EPHEDrine 50 MG/ML VIAL ONE (15:12)
[2020-06-24] MEDS ORDERED: *HR* Nalbuphine 10 MG/ML AMPUL ONE (15:40)
[2020-06-24] MEDS ORDERED: Dexamethasone 4 MG/ML VIAL ONE (15:50)
[2020-06-24] MEDS ORDERED: Ondansetron 4 MG/2 ML VIAL ONE (15:50)
[2020-06-24] MEDS ORDERED: Ondansetron 4 MG/2 ML VIAL IVP PRN (16:21)
[2020-06-24] MEDS ORDERED: Naloxone 0.4 MG/ML INJ IVP PRN (16:21)
[2020-06-24] MEDS ORDERED: Mirtazapine 15 MG TABLET PO SCH (21:00)
[2020-06-24] MEDS: traZODone 50 MG TABLET PO SCH (22:20)
[2020-06-24] MEDS: Mirtazapine 15 MG TABLET PO SCH (22:20)
[2020-06-24] MEDS: Clindamycin 900 MG/50 ML 900 MG/50 ML IV.SOLN IVPB SCH (22:21)
[2020-06-25] MEDS: Clindamycin 900 MG/50 ML 900 MG/50 ML IV.SOLN IVPB SCH (05:48)
[2020-06-25] MEDS: *HR* OxyCODONE/APAP 10/325 TABLET PO PRN ×2 (05:53→10:58)
[2020-06-25] MEDS: Budesonide/Formoterol 160/4.5 1 PUFF INH IH SCH ×2 (07:52→22:02)
[2020-06-25] MEDS: Tiotropium 10 INH DOSE IH SCH (07:53)
[2020-06-25] MEDS: hydrOXYzine pamoate 25 MG CAPSULE PO SCH (08:14)
[2020-06-25] MEDS: Carbidopa/Levodopa 25/100 TABLET PO SCH ×2 (08:15→17:10)
[2020-06-25] MEDS: Gabapentin 300 MG CAPSULE PO SCH ×2 (08:15→22:36)
[2020-06-25] MEDS: Aspirin Enteric Coated 325 MG Tablet PO SCH (08:15)
[2020-06-25] MEDS ORDERED: amLODIPine 5 MG TABLET PO SCH (09:00)
[2020-06-25 11:23] LABS: Hematocrit 34.9 % (35.3-44.9); Hemoglobin 10.8 g/dL (11.5-15.4)
[2020-06-25] MEDS: *HR* OxyCODONE/APAP 5/325 TABLET PO PRN (17:10)
[2020-06-25] MEDS: traZODone 50 MG TABLET PO SCH (22:35)
[2020-06-25] MEDS: Mirtazapine 15 MG TABLET PO SCH (22:36)
[2020-06-26] MEDS: *HR* OxyCODONE/APAP 5/325 TABLET PO PRN
[2020-06-26] MEDS: Aspirin Enteric Coated 325 MG Tablet PO SCH (09:15)
[2020-06-26] MEDS: Carbidopa/Levodopa 25/100 TABLET PO SCH ×2 (09:15→16:29)
[2020-06-26] MEDS: Gabapentin 300 MG CAPSULE PO SCH ×2 (09:15→23:17)
[2020-06-26] MEDS: hydrOXYzine pamoate 25 MG CAPSULE PO SCH (09:19)
[2020-06-26] MEDS: Budesonide/Formoterol 160/4.5 1 PUFF INH IH SCH ×2 (09:47→23:06)
[2020-06-26] MEDS: Tiotropium 10 INH DOSE IH SCH (09:48)
[2020-06-26 10:24] LABS: Hematocrit 35.8 % (35.3-44.9); Hemoglobin 11.1 g/dL (11.5-15.4); Mean Corpuscular Volume 90.4 fL (83.0-100.0); Platelet Count 263 K/mcL (140-400); Red Blood Count 3.96 M/mcL (3.82-4.97); Red Cell Distribution Width 14.6 % (11.5-14.5); White Blood Count 13.7 K/mcL (4.3-11.1)
[2020-06-26 10:44] LABS: BUN/Creatinine Ratio 14 (6-26); Blood Urea Nitrogen 12 mg/dL (8-23); Calcium 9.1 mg/dL (8.6-10.3); Carbon Dioxide 33 mEq/L (23-29); Chloride 97 mEq/L (98-107); Glucose 111 mg/dL (70-105); Osmolality,Calculated 278 (280-300); Potassium 4.1 mEq/L (3.5-5.1); Sodium 134 mEq/L (136-145); eGFR For African Americans > 60 (> 60); eGFR For Non-African Americans > 60 (> 60)
[2020-06-26] MEDS: *HR* OxyCODONE/APAP 10/325 TABLET PO PRN ×2 (16:29→23:16)
[2020-06-26] MEDS: traZODone 50 MG TABLET PO SCH (23:16)
[2020-06-26] MEDS: Mirtazapine 15 MG TABLET PO SCH (23:17)
[2020-06-27] MEDS: *HR* OxyCODONE/APAP 10/325 TABLET PO PRN (05:53)
[2020-06-27] MEDS: Gabapentin 300 MG CAPSULE PO SCH ×2 (09:38→20:40)
[2020-06-27] MEDS: hydrOXYzine pamoate 25 MG CAPSULE PO SCH (09:38)
[2020-06-27] MEDS: Carbidopa/Levodopa 25/100 TABLET PO SCH ×2 (09:38→16:40)
[2020-06-27] MEDS: Aspirin Enteric Coated 325 MG Tablet PO SCH (09:38)
[2020-06-27] MEDS: Tiotropium 10 INH DOSE IH SCH (10:49)
[2020-06-27] MEDS: Budesonide/Formoterol 160/4.5 1 PUFF INH IH SCH ×2 (10:50→22:15)
[2020-06-27] MEDS: *HR* OxyCODONE/APAP 5/325 TABLET PO PRN ×2 (16:40→20:40)
[2020-06-27] MEDS: Mirtazapine 15 MG TABLET PO SCH (20:39)
[2020-06-27] MEDS: traZODone 50 MG TABLET PO SCH (20:39)
[2020-06-28 01:30] LABS: Hematocrit 32.5 % (35.3-44.9); Mean Corpuscular HGB Conc 30.8 g/dL (31.6-35.5); Mean Corpuscular Hemoglobin 27.3 pg (28.0-33.3); Mean Corpuscular Volume 88.8 fL (83.0-100.0); Mean Platelet Volume 9.4 fL (9.4-12.4); Platelet Count 247 K/mcL (140-400); Red Blood Count 3.66 M/mcL (3.82-4.97); Red Cell Distribution Width 14.5 % (11.5-14.5); White Blood Count 10.3 K/mcL (4.3-11.1)
[2020-06-28 01:52] LABS: BUN/Creatinine Ratio 18 (6-26); Blood Urea Nitrogen 11 mg/dL (8-23); Calcium 9.1 mg/dL (8.6-10.3); Carbon Dioxide 36 mEq/L (23-29); Chloride 97 mEq/L (98-107); Glucose 98 mg/dL (70-105); Osmolality,Calculated 285 (280-300); Potassium 4.1 mEq/L (3.5-5.1); Sodium 138 mEq/L (136-145); eGFR For African Americans > 60 (> 60); eGFR For Non-African Americans > 60 (> 60)
[2020-06-28] MEDS: Tiotropium 10 INH DOSE IH SCH (07:59)
[2020-06-28] MEDS: Budesonide/Formoterol 160/4.5 1 PUFF INH IH SCH ×2 (07:59→20:38)
[2020-06-28] MEDS: Carbidopa/Levodopa 25/100 TABLET PO SCH ×2 (08:53→17:30)
[2020-06-28] MEDS: hydrOXYzine pamoate 25 MG CAPSULE PO SCH (08:53)
[2020-06-28] MEDS: Aspirin Enteric Coated 325 MG Tablet PO SCH (08:53)
[2020-06-28] MEDS: Gabapentin 300 MG CAPSULE PO SCH ×2 (08:53→19:46)
[2020-06-28] MEDS: *HR* OxyCODONE/APAP 5/325 TABLET PO PRN (14:23)
[2020-06-28] MEDS: traZODone 50 MG TABLET PO SCH (19:46)
[2020-06-28] MEDS: Mirtazapine 15 MG TABLET PO SCH (19:47)
[2020-06-29] MEDS: Budesonide/Formoterol 160/4.5 1 PUFF INH IH SCH ×2 (08:37→22:28)
[2020-06-29] MEDS: Tiotropium 10 INH DOSE IH SCH (08:38)
[2020-06-29] MEDS: *HR* OxyCODONE/APAP 5/325 TABLET PO PRN (08:44)
[2020-06-29] MEDS: Gabapentin 300 MG CAPSULE PO SCH ×2 (08:44→20:06)
[2020-06-29] MEDS: Carbidopa/Levodopa 25/100 TABLET PO SCH ×2 (08:45→17:34)
[2020-06-29] MEDS: hydrOXYzine pamoate 25 MG CAPSULE PO SCH (08:45)
[2020-06-29] MEDS: Nicotine 21 MG PATCH.TD24 TD SCH (08:45)
[2020-06-29] MEDS: Aspirin Enteric Coated 325 MG Tablet PO SCH (08:45)
[2020-06-29] MEDS: traZODone 50 MG TABLET PO SCH (20:06)
[2020-06-29] MEDS: Mirtazapine 15 MG TABLET PO SCH (20:06)
[2020-06-29] MEDS ORDERED: Acetaminophen IV 1,000 MG/100 ML BAG IVPB ONE (20:20)
[2020-06-30] MEDS ORDERED: *HR* HYDROcodone/Acet 5/325 mg TABLET PO ONE (00:57)
[2020-06-30] MEDS ORDERED: *HR* HYDROcodone/Acet 7.5/325 mg TABLET PO ONE (05:22)
[2020-06-30] MEDS: Tiotropium 10 INH DOSE IH SCH (08:22)
[2020-06-30] MEDS: Budesonide/Formoterol 160/4.5 1 PUFF INH IH SCH ×2 (08:23→19:48)
[2020-06-30] MEDS: Nicotine 21 MG PATCH.TD24 TD SCH (08:42)
[2020-06-30] MEDS: Aspirin Enteric Coated 325 MG Tablet PO SCH (08:42)
[2020-06-30] MEDS: hydrOXYzine pamoate 25 MG CAPSULE PO SCH (08:42)
[2020-06-30] MEDS: Gabapentin 300 MG CAPSULE PO SCH ×2 (08:42→20:39)
[2020-06-30] MEDS: Carbidopa/Levodopa 25/100 TABLET PO SCH ×2 (08:42→17:09)
[2020-06-30] MEDS: traZODone 50 MG TABLET PO SCH (20:39)
[2020-06-30] MEDS: Mirtazapine 15 MG TABLET PO SCH (20:39)
[2020-07-01] MEDS ORDERED: *HR* HYDROcodone/Acet 5/325 mg TABLET PO ONE (00:35)
[2020-07-01 07:46] VITALS: BP 128/67
[2020-07-01] MEDS: Tiotropium 10 INH DOSE IH SCH (07:56)
[2020-07-01] MEDS: Budesonide/Formoterol 160/4.5 1 PUFF INH IH SCH (07:56)
[2020-07-01] MEDS: Carbidopa/Levodopa 25/100 TABLET PO SCH (08:33)
[2020-07-01] MEDS: hydrOXYzine pamoate 25 MG CAPSULE PO SCH (08:33)
[2020-07-01] MEDS: Gabapentin 300 MG CAPSULE PO SCH (08:33)
[2020-07-01] MEDS: Aspirin Enteric Coated 325 MG Tablet PO SCH (08:33)
[2020-07-01] MEDS: Nicotine 21 MG PATCH.TD24 TD SCH (08:33)
[2020-07-01] MEDS ORDERED: *HR* OxyCODONE/APAP 5/325 TABLET PO PRN (09:57)
[2020-07-01 14:49] LABS: Adenovirus Not Detected (Not Detect); Bordetella Pertussis Not Detected (Not Detect); Chlamydophila pneumoniae Not Detected (Not Detect); Coronavirus 229E Not Detected (Not Detect); Coronavirus HKU1 Not Detected (Not Detect); Coronavirus NL63 Not Detected (Not Detect); Coronavirus OC43 Not Detected (Not Detect); Human Metapneumovirus Not Detected (Not Detect); Human Rhinovirus/Enterovirus Not Detected (Not Detect); Influenza A Subtype 2009 H1 Not Detected (Not Detect); Influenza B Not Detected (Not Detect); Mycoplasma pneumoniae Not Detected (Not Detect); Parainfluenza Virus 1 Not Detected (Not Detect); Parainfluenza Virus 2 Not Detected (Not Detect); Parainfluenza Virus 3 Not Detected (Not Detect); Parainfluenza Virus 4 Not Detected (Not Detect); Respiratory Syncytial Virus Not Detected (Not Detect); SARS-CoV-2 Not Detected (Not Detect)
== END 2020-07-01 16:03 | DRG 308 ==
LOC: 3NENU → SUATTDRO 15:02
PROVIDERS: ADMIT Internal Medicine; ATTEND Internal Medicine